=== PATIENT | male | born 1960 | race Caucasian/White ===

== ENCOUNTER → 2017-04-13 11:16 | Outpatient (POV) | payer MEDICARE, MEDICAID, SELFPAY ==
[2017-04-13 12:07] VITALS: BP 190/114; PULSE 87; RESP 18; O2SAT 94
--- NOTE | 2017-04-13 12:30 | HMH.PMCON ---
Assessment and Plan (1) Cervical post-laminectomy syndrome Current visit: Yes Status: Acute Category: Medical Code(s): M96.1 - Postlaminectomy syndrome, not elsewhere classified (2) Degenerative joint disease of cervical spine Current visit: Yes Status: Acute Qualifiers: Spinal osteoarthritis complication: with radiculopathy Qualified Code(s): M47.22 - Other spondylosis with radiculopathy, cervical region Category: Medical Code(s): M47.812 - Spondylosis without myelopathy or radiculopathy, cervical region (3) Cervical radiculopathy due to degenerative joint disease of spine Current visit: Yes Status: Acute Category: Medical Code(s): M47.22 - Other spondylosis with radiculopathy, cervical region (4) Degenerative joint disease of cervical and lumbar spine Current visit: Yes Status: Acute Category: Medical Code(s): M47.812 - Spondylosis without myelopathy or radiculopathy, cervical region; M47.816 - Spondylosis without myelopathy or radiculopathy, lumbar region (5) Degenerative joint disease (DJD) of lumbar spine Current visit: Yes Status: Acute Qualifiers: Spinal osteoarthritis complication: with radiculopathy Qualified Code(s): M47.26 - Other spondylosis with radiculopathy, lumbar region Category: Medical Code(s): M47.816 - Spondylosis without myelopathy or radiculopathy, lumbar region (6) Lumbosacral radiculopathy due to degenerative joint disease of spine Current visit: Yes Status: Acute Category: Medical Code(s): M47.27 - Other spondylosis with radiculopathy, lumbosacral region - Assessment and plan all Dx Assessment and Plan for all problems:: We will start this patient on diclofenac 75 mg twice a day. This will be transmitted to his pharmacy. We will also schedule for cervical epidural steroid injection. The patient did walk out without receiving an appointment for his injection so it is assumed that he is not interested in any further therapy. Since he has been dismissed from 2 previous pain clinics we will not prescribe him any narcotics. HPI - Data of Consult Patient: new to practice Consult date: 04/13/17 Requesting Physician: Nico Rosa MD Primary Care Provider: Mynor Severino MD Family Provider: Referral Provider, MD - Consult Narrative Reason for consult: Neck pain, mid back pain and low back pain History of present illness: Mr. Simms is a 56 year old male who has a long history of neck pain, low back pain and mid back pain. MRI does show degenerative changes throughout the lumbar spine with bulging disc and facet hypertrophy throughout L3-L4, L4-L5 and L5-S1. MRI of the thoracic spine does show some degenerative changes with postsurgical changes of the cervical spine. He also does have significant degenerative disc disease throughout the cervical spine. Most of his pain today is in the neck radiating to both arms. He has been to to previous pain clinics. He did receive injections by Dr. ITZ Kilgore and recently he was seen at the pain treatment center on [facility]. He was dismissed from the pain treatment center for noncompliance with her narcotic agreement. He is requesting oxycodone. I have told him that we will not give him any oral narcotics and the only thing I can offer him is a anti-inflammatory and injections. We will start him on diclofenac 75 mg twice a day. This will be transmitted to his pharmacy. We will also schedule him for a cervical epidural steroid injection. CC: Nico Rosa MD [facility] History Medical History: Reports:: Myocardial Infarction Denies:: Cancer, Diabetes Mellitus Type 1, Diabetes Mellitus Type 2, MRSA Other Medical History: Reports: Arthritis Other Surgeries: No: Pacemaker Amputation: No Fractures: No - *Social History Smoking Status: Current every day smoker Tobacco Type: cigarettes # Packs/Day (cigarettes): 1 Alcohol Intake: never Substance Use Type: denies use Occupational Status: unemploy
--- NOTE | 2017-04-13 12:33 | P.CONS_ITS ---
Assessment and Plan (1) Cervical post-laminectomy syndrome Current visit: Yes Status: Acute Category: Medical Code(s): M96.1 - Postlaminectomy syndrome, not elsewhere classified (2) Degenerative joint disease of cervical spine Current visit: Yes Status: Acute Qualifiers: Spinal osteoarthritis complication: with radiculopathy Qualified Code(s): M47.22 - Other spondylosis with radiculopathy, cervical region Category: Medical Code(s): M47.812 - Spondylosis without myelopathy or radiculopathy, cervical region (3) Cervical radiculopathy due to degenerative joint disease of spine Current visit: Yes Status: Acute Category: Medical Code(s): M47.22 - Other spondylosis with radiculopathy, cervical region (4) Degenerative joint disease of cervical and lumbar spine Current visit: Yes Status: Acute Category: Medical Code(s): M47.812 - Spondylosis without myelopathy or radiculopathy, cervical region; M47.816 - Spondylosis without myelopathy or radiculopathy, lumbar region (5) Degenerative joint disease (DJD) of lumbar spine Current visit: Yes Status: Acute Qualifiers: Spinal osteoarthritis complication: with radiculopathy Qualified Code(s): M47.26 - Other spondylosis with radiculopathy, lumbar region Category: Medical Code(s): M47.816 - Spondylosis without myelopathy or radiculopathy, lumbar region (6) Lumbosacral radiculopathy due to degenerative joint disease of spine Current visit: Yes Status: Acute Category: Medical Code(s): M47.27 - Other spondylosis with radiculopathy, lumbosacral region - Assessment and plan all Dx Assessment and Plan for all problems:: We will start this patient on diclofenac 75 mg twice a day. This will be transmitted to his pharmacy. We will also schedule for cervical epidural steroid injection. The patient did walk out without receiving an appointment for his injection so it is assumed that he is not interested in any further therapy. Since he has been dismissed from 2 previous pain clinics we will not prescribe him any narcotics. HPI - Data of Consult Patient: new to practice Consult date: 04/13/17 Requesting Physician: Nico Rosa MD Primary Care Provider: Mynor Severino MD Family Provider: Referral Provider, MD - Consult Narrative Reason for consult: Neck pain, mid back pain and low back pain History of present illness: Mr. Simms is a 56 year old male who has a long history of neck pain, low back pain and mid back pain. MRI does show degenerative changes throughout the lumbar spine with bulging disc and facet hypertrophy throughout L3-L4, L4-L5 and L5-S1. MRI of the thoracic spine does show some degenerative changes with postsurgical changes of the cervical spine. He also does have significant degenerative disc disease throughout the cervical spine. Most of his pain today is in the neck radiating to both arms. He has been to to previous pain clinics. He did receive injections by Dr. ITZ Kilgore and recently he was seen at the pain treatment center on [facility]. He was dismissed from the pain treatment center for noncompliance with her narcotic agreement. He is requesting oxycodone. I have told him that we will not give him any oral narcotics and the only thing I can offer him is a anti-inflammatory and injections. We will start him on diclofenac 75 mg twice a day. This will be transmitted to his pharmacy. We will also schedule him for a cervical epidural steroid injection. CC: Nico Rosa MD [facility] History Medical History: Reports:: Myocardial Infarction Denies:: Cancer, Diabetes Mellitus Type 1, Diabetes
== END ==
PROVIDERS: PCP Emergency Medicine; Visit Provider Anesthesiology
DX: M47.22 Other spondylosis with radiculopathy, cervical region (principal); M47.26 Other spondylosis with radiculopathy, lumbar region; M47.812 Spondylosis without myelopathy or radiculopathy, cervical region; M96.1 Postlaminectomy syndrome, not elsewhere classified
CPT/HCPCS: 99202

== ENCOUNTER 2017-05-02 14:26 | Emergency (ER) | payer MEDICARE, MEDICAID, SELFPAY ==
--- NOTE | 2017-05-02 | CT_ITS ---
CT angio chest CTA chest/with CTA reconstructions . Ordering Physician: Art Arevalo MD Patient Age: 56 years: Male HISTORY: ITS.REASON: CHEST PAIN AND ELEVATED D DIMER Elevated d-dimer with chest pain upper normal wall thickness throughout entire esophagus. TECHNIQUE: Thin section Helical CT scanning through the chest following 70 cc Isovue-370 followed x 40 mL normal saline. From the acquired thin sections thickened axial images performed. Thereafter thickened MIPP volume images performed in the sagittal coronal plane on CT workstation COMPARISON :Chest film 01/29/2017 & 02/23/2016 & 05/02/2017 FINDINGS . No evidence of pulmonary embolism. There is good visualization of pulmonary arteries with no filling defects identified. It the aortic arch and great vessels arising from such appears satisfactory. Minimal atheromatous plaque throughout the descending aorta. It. No mediastinal adenopathy nor hilar adenopathy. Heart Normal size. No pericardial effusion Prominent hyperexpansion and COPD,. Emphysematous changes throughout. With Scattered bleb formation. Most evident towards apices. Minimal scarring towards apices. . Mild diffuse Thickening of the airways throughout, but most evident centrally. Suspect reflects chronic bronchitisin this presumed smoker. Major Central airway show no obstruction. However there is narrowing of branching airways bilateral.: For example fourth order bronchus leading towards RLL with additional additional wall thickening or mucoid material nearly obstructing this lumen..-This feature is best evaluated on the thin section axial image sets . ( Slice 213 on very thin axial thin section image set & also seen on thickened axial images slice 77.).. Similar thickened narrowed airways leading towards the lingula anteriorly on the left, seen on axial thin section 207.. Anterior fusion lower C-spine. T-spine intact noted. Survey ribs unremarkable.. T-spine intact Limited imaging into the Uppermost abdomen:. Note so stippled calcifications throughout the pancreas compatible with chronic pancreatitis. Cholecystectomy. Fluid-filled descending duodenum. What appears to be persistent stent duct common bile duct, and stent possible at pancreatic duct again noted. Mild dilatation of intrahepatic biliary ducts particularly at left lobe of liver. . IMPRESSION: 1. No evidence of pulmonary embolism.. Good quality study. Aorta satisfactory with only Minor thrombus plaque throughout the descending aorta. 2. Prominent COPD. & Emphysematous changes Again noted. Mild diffuse thickening of airways. . 3. Note Small fourth order airways which are nearly occluded and obstructed, most likely due to due to inflammatory wall thickening along with mucoid material. Doubt early lesion but cannot be totally exclude.. This is seen only at distal fourth order airways-for example bronchusleading to R LL; as well is fourth order bronchus leading to to the lingula on left. *Would encourage a follow-up CT screening chest 6 months for ongoing evaluation in this this patient with presumed significant smoking history 4. No acute pulmonary findings. No focal pneumonia.. 4. Included.Limited images upper abdomen--again note stippled calcification pancreas, likely reflecting chronic pancreatitis... Biliary and pancreatic stent I believe remain in place.
[2017-05-02 14:31] VITALS: BP 136/98; PULSE 80; RESP 20; O2SAT 97; BMI 20.1
--- NOTE | 2017-05-02 14:40 | XR_ITS ---
XR chest 2V Ordering Physician: Art Arevalo MD Patient Age: 56 years: Male HISTORY: ITS.REASON: chest pain TECHNIQUE: PA and lateral chest COMPARISON :01/29/2017 2 view chest. . Previous 01/29/2017 and 02/23/2016 CXR FINDINGS No focal pneumonia. Nothing definitely acute. Heart carlitos and mediastinal structures satisfactory. Previous anterior fusion C-spine noted. No pneumothorax no pleural effusion. The chest wall and T-spine appears stable and satisfactory.. There seems to be some variable coarsening and prominence of central markings I believe we see such again today which may reflect a bronchitis mild central airway inflammatory changes. Subsequent CT shows no focal pneumonia but there is airway thickening evident. Which supports this plain film impression IMPRESSION: ---- . No focal pneumonia. Mild central airway thickening at situation central markings. COPD,. (More impressive and evident on subsequent CT..)
--- NOTE | 2017-05-02 14:56 | HMH.EDCP ---
ED Disposition Clinical Impression: CAD (coronary artery disease), Atelectasis, COPD (chronic obstructive pulmonary disease), Tobacco use disorder, Atypical chest pain Disposition: Left Against Medical Advice Condition on Discharge: Good Additional Instructions: While waiting the patient became agitated and refused to wait on his second troponin . the patient was given copy of the CT scan report to follow-up with Dr. Severino. He will follow-up with Dr. Rivera. daily asa stop smoking added an albuterol MDI return if needed Prescriptions: Albuterol Sulfate [Albuterol HFA Inhaler] 1 puff IH Q4HP PRN #1 inh PRN Reason: Shortness Of Breath Or Wheezing Referrals: Mynor Severino MD [Primary Care Provider] - - Critical Care Critical Care Time: No Attestation: On 05/02/17, the high probability of a clinically significant, sudden or life threatening deterioration of the following system(s) required my full and direct attention, intervention and personal management. The time I documented below is in addition to time spent performing reported procedures but includes the following listed in this critical care notation. Medical Decision Making Vital Signs: 05/02/17 14:31 05/02/17 18:15 Pulse Rate [Right Brachial] 80 Respiratory Rate 20 Blood Pressure [Right Arm] 136/98 Blood Pressure Mean [Right Arm] 110 Blood Pressure Source [Right Arm] Automatic Cuff Blood Pressure Position [Right Arm] Supine 02 Sat by Pulse Oximetry 97 Oxygen Delivery Method Room Air Room Air - Lab Data Lab Results 05/02/17 14:40: WBC 13.9 H, RBC 5.29, Hgb 16.0, Hct 48.1, MCV 90.9, MCH 30.3, MCHC 33.3, RDW 13.6, Plt Count 279, MPV 7.2 L, Neut % (Auto) 77.3, Lymph % (Auto) 13.8, Child[place] % (Auto) 6.9, Eos % (Auto) 1.5, Baso % (Auto) 0.5, Neut # (Auto) 10.8 H, Lymph # (Auto) 1.9, Child[place] # (Auto) 1.0, Eos # (Auto) 0.2, Baso # (Auto) 0.1 05/02/17 14:40: D-Dimer 613 H* 05/02/17 14:40: Sodium 136, Potassium 3.5, Chloride 100, Carbon Dioxide 27, Anion Gap 12.5, BUN 11, Creatinine 1.01, Estimated Creat Clear 65, Estimated GFR 76, Est GFR ( Amer) 92, Glucose 156 H, Calcium 8.9, Total Bilirubin 0.6, AST 62 H, ALT 89 H, Alkaline Phosphatase 206 H, Total Creatine Kinase 129, CK-MB (CK-2) 0.5, CK-MB (CK-2) Rel Index 0.4, Troponin I < 0.02, Total Protein 8.1, Albumin 3.6, Globulin 4.5 H, Albumin/Globulin Ratio 0.8 L 05/02/17 14:40: B-Natriuretic Peptide 41 05/02/17 14:40: Lipase 632 H 05/02/17 14:40: Magnesium 1.8 05/02/17 17:25: Troponin I < 0.02 Result diagrams: 05/02/17 14:40 05/02/17 14:40 Orders (Tests/Meds): ED MEDICATIONS Discontinued Medications Generic Name Dose Route Start Last Admin Trade Name Freq PRN Reason Stop Dose Admin Acetaminophen 650 mg 05/02/17 18:00 05/02/17 18:02 Acetaminophen 325mg Tab PO 05/02/17 18:01 Not Given ONCE ONE Albuterol/Ipratropium 3 ml 05/02/17 18:03 Duoneb 3ml Neb IH 05/02/17 18:04 ONCE ONE - ECG Data Tracing #1 Normal sinus rhythm 74/min, atrial enlargement all T waves, to exclude hyperkalemia. ECG initial impression date: 05/02/17 - Shawn Inquiry Pt receiving controlled substance: No Shawn was queried for this patient: No Medical Decision Making Narrative: I discussed the underlying CT report with the patient and give him a copy to discuss with his primary care physician. Have a CT scan follow-up as recommended by the radiology. While waiting on his second troponin the patient became agitated and decided to leave AGAINST MEDICAL ADVICE MPRESSION: 1. No evidence of pulmonary embolism.. Good quality study. Aorta satisfactory with only Minor thrombus plaque throughout the descending aorta. 2. Prominent COPD. & Emphysematous changes Again noted. Mild diffuse thickening of airways. . 3. Note Small fourth order airways which are nearly occluded and obstructed, most likely due to due to inflammatory wall thic
--- NOTE | 2017-05-02 14:59 | ED_ITS ---
ED Disposition Clinical Impression: CAD (coronary artery disease), Atelectasis, COPD (chronic obstructive pulmonary disease), Tobacco use disorder, Atypical chest pain Disposition: Left Against Medical Advice Condition on Discharge: Good Additional Instructions: While waiting the patient became agitated and refused to wait on his second troponin . the patient was given copy of the CT scan report to follow-up with Dr. Severino. He will follow-up with Dr. Rivera. daily asa stop smoking added an albuterol MDI return if needed Prescriptions: Albuterol Sulfate [Albuterol HFA Inhaler] 1 puff IH Q4HP PRN #1 inh PRN Reason: Shortness Of Breath Or Wheezing Referrals: Mynor Severino MD [Primary Care Provider] - - Critical Care Critical Care Time: No Attestation: On 05/02/17, the high probability of a clinically significant, sudden or life threatening deterioration of the following system(s) required my full and direct attention, intervention and personal management. The time I documented below is in addition to time spent performing reported procedures but includes the following listed in this critical care notation. Medical Decision Making Vital Signs: 05/02/17 14:31 05/02/17 18:15 Pulse Rate [Right Brachial] 80 Respiratory Rate 20 Blood Pressure [Right Arm] 136/98 Blood Pressure Mean [Right Arm] 110 Blood Pressure Source [Right Arm] Automatic Cuff Blood Pressure Position [Right Arm] Supine 02 Sat by Pulse Oximetry 97 Oxygen Delivery Method Room Air Room Air - Lab Data Lab Results 05/02/17 14:40: WBC 13.9 H, RBC 5.29, Hgb 16.0, Hct 48.1, MCV 90.9, MCH 30.3, MCHC 33.3, RDW 13.6, Plt Count 279, MPV 7.2 L, Neut % (Auto) 77.3, Lymph % (Auto ) 13.8, Slope % (Auto) 6.9, Eos % (Auto) 1.5, Baso % (Auto) 0.5, Neut # (Auto) 10.8 H, Lymph # (Auto) 1.9, Slope # (Auto) 1.0, Eos # (Auto) 0.2, Baso # (Auto) 0.1 05/02/17 14:40: D-Dimer 613 H* 05/02/17 14:40: Sodium 136, Potassium 3.5, Chloride 100, Carbon Dioxide 27, Anion Gap 12.5, BUN 11, Creatinine 1.01, Estimated Creat Clear 65, Estimated GFR 76, Est GFR ( Amer) 92, Glucose 156 H, Calcium 8.9, Total Bilirubin 0.6, AST 62 H, ALT 89 H, Alkaline Phosphatase 206 H, Total Creatine Kinase 129, CK-MB (CK-2) 0.5, CK-MB (CK-2) Rel Index 0.4, Troponin I < 0.02, Total Protein 8.1, Albumin 3.6, Globulin 4.5 H, Albumin/Globulin Ratio 0.8 L 05/02/17 14:40: B-Natriuretic Peptide 41 05/02/17 14:40: Lipase 632 H 05/02/17 14:40: Magnesium 1.8 05/02/17 17:25: Troponin I < 0.02 Result diagrams: 05/02/17 14:40 05/02/17 14:40 Orders (Tests/Meds): ED MEDICATIONS Discontinued Medications Generic Name Dose Route Start Last Admin Trade Name Freq PRN Reason Stop Dose Admin Acetaminophen 650 mg 05/02/17 18:00 05/02/17 18:02 Acetaminophen 325mg Tab PO 05/02/17 18:01 Not Given ONCE ONE Albuterol/Ipratropium 3 ml 05/02/17 18:03 Duoneb 3ml Neb IH 05/02/17 18:04 ONCE ONE - ECG Data Tracing #1 Normal sinus rhythm 74/min, atrial enlargement all T waves, to exclude hyperkalemia. ECG initial impression date: 05/02/17 - Shawn Inquiry Pt receiving controlled substance: No Shawn was queried for this patient: No Medical Decision Making Narrative: I discussed the underlying CT report with the patient and give him a copy to
[2017-05-02 15:11] LABS: Basophils # 0.1 K/mm3 (0-0.2); Basophils % 0.5 % (0.1-2.0); Eosinophils # 0.2 K/mm3 (0.0-0.4); Eosinophils % 1.5 % (0.1-12.0); Hematocrit 48.1 % (42.0-52.0); Lymphocytes # 1.9 K/mm3 (0.7-4.5); Lymphocytes % 13.8 K/mm3 (10-50); Mean Corpuscular HGB Conc 33.3 g/dL (31.8-35.4); Mean Corpuscular Hemoglobin 30.3 pg (27.0-31.2); Mean Corpuscular Volume 90.9 fl (80-94); Mean Platelet Volume 7.2 fl (7.4-10.4); Monocytes % 6.9 % (1.7-9.3); Neutrophils # 10.8 K/mm3 (1.8-7.8); Neutrophils % 77.3 % (37.0-80.0); Platelet Count 279 K/mm3 (142-424); Red Blood Count 5.29 M/mm3 (4.60-6.20); Red Cell Distribution Width 13.6 % (11.5-17.5); White Blood Count 13.9 K/mm3 (4.8-10.8)
[2017-05-02 15:18] LABS: Magnesium 1.8 mg/dL (1.4-2.2)
[2017-05-02 15:19] LABS: Lipase 632 u/L (73-393)
[2017-05-02 15:29] LABS: Alanine Aminotransferase 89 U/L (12-78); Albumin Level 3.6 gm/dL (3.4-5.0); Albumin/Globulin Ratio 0.8 (1.1-1.8); Alkaline Phosphatase 206 U/L (46-116); Anion Gap 12.5 mEq/L (5-15); Aspartate Amino Transferase 62 U/L (15-37); Bilirubin,Total 0.6 mg/dL (0.2-1.0); Blood Urea Nitrogen 11 mg/dL (7-18); CKMB Relative Index 0.4 U/L (0-4.0); Calcium 8.9 mg/dL (8.5-10.1); Carbon Dioxide 27 mmol/L (21.0-32.0); Chloride 100 mmol/L (98-107); Creatine Kinase 129 U/L (39-308); Creatine Kinase MB 0.5 mg/ml (0.0-3.6); Creatinine Clearance Estimated 65 mL/min (0-300); Creatinine,Serum 1.01 mg/dL (0.70-1.30); Estimated Glomerular Filt Rate 76 ml/min (>60); GFR (African American) 92 ML/MIN (>60); Globulin 4.5 gm/dl (1.3-3.2); Glucose 156 mg/dL (74-106); Potassium 3.5 mmoL/L (3.5-5.1); Sodium 136 mmol/L (136-145); Total Protein,Serum 8.1 gm/dL (6.4-8.2); Troponin I < 0.02 ng/ml (0.00-0.06)
[2017-05-02 15:34] LABS: D-Dimer 613 (0-400)
--- NOTE | 2017-05-02 18:04 | PC.NURSE ---
patient stated he was having pain and md ordered tylenol when going to give patient tylenol he stated if thats all they can do i don't even want it . patient didn't take it at this time.
[2017-05-02 18:12] LABS: Troponin I < 0.02 ng/ml (0.00-0.06)
--- NOTE | 2017-05-02 18:27 | PC.NURSE ---
WENT IN ROOM PT SAID HE WASNT WAITING ON HIS LABS HE WAS READY TO LEAVE , PT SIGNED HIS AMA PAPERS
== END 2017-05-02 16:15 | disposition left against medical advice (07) ==
PROVIDERS: Emergency Provider Emergency Medicine; PCP Emergency Medicine
DX: I25.10 Atherosclerotic heart disease of native coronary artery without angina pectoris (principal); F17.210 Nicotine dependence, cigarettes, uncomplicated; J44.9 Chronic obstructive pulmonary disease, unspecified; J98.11 Atelectasis; R07.89 Other chest pain; Z95.5 Presence of coronary angioplasty implant and graft; Z53.21 Procedure and treatment not carried out due to patient leaving prior to being seen by health care provider
CPT/HCPCS: 36415; 71046; 71275; 80053; 82550; 82553; 83690; 83735; 83880; 84484; 85025; 85378; 93005; 99283

== ENCOUNTER → 2018-07-20 17:02 | Outpatient (CLI) | payer MEDICARE, MEDICAID, SELFPAY ==
[2018-07-20 18:26] LABS: Basophils # 0.1 K/mm3 (0-0.2); Basophils % 0.6 % (0.1-2.0); Eosinophils # 0.3 K/mm3 (0.0-0.4); Eosinophils % 2.8 % (0.1-12.0); Hemoglobin 14.1 g/dL (14.1-18.0); Lymphocytes # 2.5 K/mm3 (0.7-4.5); Lymphocytes % 26.6 % (10-50); Mean Corpuscular HGB Conc 33.6 g/dL (31.8-35.4); Mean Corpuscular Hemoglobin 30.9 pg (27.0-31.2); Mean Platelet Volume 7.7 fl (7.4-10.4); Monocytes # 0.5 K/mm3 (0.1-1.0); Monocytes % 5.5 % (1.7-9.3); Neutrophils # 6.1 K/mm3 (1.8-7.8); Neutrophils % 64.4 % (37.0-80.0); Platelet Count 291 K/mm3 (142-424); Red Blood Count 4.56 M/mm3 (4.60-6.20); Red Cell Distribution Width 14.2 % (11.5-17.5); White Blood Count 9.5 K/mm3 (4.8-10.8)
[2018-07-20 18:46] LABS: Alanine Aminotransferase 20 U/L (12-78); Albumin Level 3.5 gm/dL (3.4-5.0); Albumin/Globulin Ratio 0.9 (1.1-1.8); Alkaline Phosphatase 85 U/L (46-116); Anion Gap 14.4 mEq/L (5-15); Aspartate Amino Transferase 15 U/L (15-37); Bilirubin,Total 0.3 mg/dL (0.2-1.0); Blood Urea Nitrogen 11 mg/dL (7-18); Calcium 8.6 mg/dL (8.5-10.1); Carbon Dioxide 27 mmol/L (21.0-32.0); Chloride 103 mmol/L (98-107); Creatinine,Serum 1.22 mg/dL (0.70-1.30); Estimated Glomerular Filt Rate 61 ml/min (>60); Free T4 (Free Thyroxine) 1.14 ng/dl (0.76-1.46); GFR (African American) 74 ML/MIN (>60); Globulin 3.8 gm/dl (1.3-3.2); Glucose 187 mg/dL (74-106); Potassium 3.4 mmoL/L (3.5-5.1); Sodium 141 mmol/L (136-145); Thyroid Stimulating Hormone 0.41 uIU/ml (0.358-3.740); Total Protein,Serum 7.3 gm/dL (6.4-8.2)
[2018-07-20 19:07] LABS: Erythrocyte Sedimentation Rate 13 mm/hr (0-20)
[2018-07-22 16:19] LABS: Hemoglobin A1C 6.6 % (0.0-7.0)
[2018-07-22 18:32] LABS: Vitamin D 25 Hydroxy 17.2 ng/mL (30.0-100.0)
== END ==
PROVIDERS: Visit Provider Emergency Medicine
DX: I25.10 Atherosclerotic heart disease of native coronary artery without angina pectoris (principal); I10 Essential (primary) hypertension; R73.9 Hyperglycemia, unspecified
CPT/HCPCS: 80053; 82652; 83036; 84439; 84443; 85025; 85651

== ENCOUNTER → 2018-08-02 12:40 | Outpatient (CLI) | payer MEDICARE, MEDICAID, SELFPAY ==
--- NOTE | 2018-08-02 12:42 | MR_ITS ---
MR cervical spine wo con, MR 3-d myelogram/MRCP HISTORY: PT states neck pain, mid and low back pain X years. Bilateral arm pain, LT arm worse. Bilateral hand and fingers numbness and tingling. Prior neck surgery. ITS.REASON: neck pain ORDERING PHYSICIAN: Mynor Severino MD PATIENT AGE: 58 years Comparison: MRI 03/15/15. TECHNIQUE: Standard multiplanar multiecho sequences are performed without contrast. 3-D MIP and myelographic images are also rendered and reviewed FINDINGS: There has been prior anterior cervical disc fusion at C5-C6 and C7 with moderate degree of artifact. The craniocervical junction has an unremarkable appearance. There is however noted to be diffuse increased T2 signal within the donna. This may be better evaluated with MRI of the brain without and with contrast. C2-C3: Unremarkable. C3-C4: Moderate left-sided foraminal narrowing from uncovertebral hypertrophy C4-C5: Degenerative disc disease. Significant artifact from the anterior bone plate and screws at C5. There is focal increased T2 signal involving the C4-C5 disc space centrally not significant change. There is narrowing of the canal at this level at 10 mm without cord impingement. Mild prominence of the posterior longitudinal ligament as before C5-C6: Significant artifact from the anterior bone plate with narrowing of the canal at 10 mm without cord impingement C6-C7 postsurgical changes with artifact with narrowing of the canal 10 mm without impingement. Posterior hypertrophic change eccentric to the left versus artifact as before C7-T1: Unremarkable. IMPRESSION: 1. Postsurgical changes with significant artifact. 2. Cervical spondylosis as described above. Please see above for detailed description at each level. 3. Increased T2 signal in the donna. 4. Overall no significant change from the previous exam.
== END ==
PROVIDERS: PCP Emergency Medicine; Visit Provider Emergency Medicine
DX: M54.2 Cervicalgia (principal)
CPT/HCPCS: 72141; 76376

== ENCOUNTER 2018-11-08 16:57 | Observation (INO) ==
[2018-11-08 17:15] LABS: Basophils # 0.1 K/mm3 (0-0.2); Basophils % 0.7 % (0.1-2.0); Eosinophils # 0.1 K/mm3 (0.0-0.4); Eosinophils % 0.7 % (0.1-12.0); Hematocrit 48.6 % (42.0-52.0); Hemoglobin 15.9 g/dL (14.1-18.0); Lymphocytes # 2.5 K/mm3 (0.7-4.5); Mean Corpuscular HGB Conc 32.7 g/dL (31.8-35.4); Mean Platelet Volume 6.6 fl (7.4-10.4); Monocytes # 0.8 K/mm3 (0.1-1.0); Monocytes % 5.8 % (1.7-9.3); Neutrophils % 75.9 % (37.0-80.0); Platelet Count 332 K/mm3 (142-424); Red Blood Count 5.23 M/mm3 (4.60-6.20); Red Cell Distribution Width 13.7 % (11.5-17.5); White Blood Count 14.4 K/mm3 (4.8-10.8)
[2018-11-08 17:30] LABS: Anion Gap 13.4 mEq/L (5-15); Blood Urea Nitrogen 21 mg/dL (7-18); Calcium 9.2 mg/dL (8.5-10.1); Carbon Dioxide 28 mmol/L (21.0-32.0); Chloride 99 mmol/L (98-107); Glucose 122 mg/dL (74-106); Sodium 136 mmol/L (136-145)
--- NOTE | 2018-11-08 19:03 | Emergency Department Note ---
ED Disposition Clinical Impression: Precordial chest pain Disposition: Admitted as Observation Condition on Discharge: Fair Referrals: Mynor Severino MD [Primary Care Provider] - - Critical Care Critical Care Time: No Attestation: On 11/08/18, the high probability of a clinically significant, sudden or life threatening deterioration of the following system(s) required my full and direct attention, intervention and personal management. The time I documented below is in addition to time spent performing reported procedures but includes the following listed in this critical care notation. Medical Decision Making - Medical Records Medical records reviewed: Yes: I reviewed the patient's medical records. - Shawn Inquiry Pt receiving controlled substance: No Vital Signs: 11/08/18 16:57 11/08/18 17:25 11/08/18 17:30 Temperature 98 F Temperature Source Oral Pulse Rate [Right Apical] 85 72 75 Respiratory Rate 18 20 Blood Pressure [Right Arm] 154/118 H 135/79 135/79 Blood Pressure Mean [Right Arm] 130 97 97 Blood Pressure Source [Right Arm] Automatic Cuff Blood Pressure Position [Right Arm] Sitting 02 Sat by Pulse Oximetry 98 98 97 Oxygen Delivery Method Room Air Room Air Room Air - Lab Data Lab Results 11/08/18 17:00: WBC 14.4 H, RBC 5.23, Hgb 15.9, Hct 48.6, MCV 93.0, MCH 30.4, MCHC 32.7, RDW 13.7, Plt Count 332, MPV 6.6 L, Neut % (Auto) 75.9, Lymph % (Auto) 17.0, [place] % (Auto) 5.8, Eos % (Auto) 0.7, Baso % (Auto) 0.7, Neut # (Auto) 11.0 H, Lymph # (Auto) 2.5, [place] # (Auto) 0.8, Eos # (Auto) 0.1, Baso # (Auto) 0.1 11/08/18 17:00: Sodium 136, Potassium 4.4, Chloride 99, Carbon Dioxide 28, Anion Gap 13.4, BUN 21 H, Creatinine 1.99 H, Estimated Creat Clear 32, Estimated GFR 35 L, Est GFR ( Amer) 42 L, Glucose 122 H, Calcium 9.2, Troponin I < 0.02 Result diagrams: 11/08/18 17:00 11/08/18 17:00 Orders (Tests/Meds): ED MEDICATIONS Discontinued Medications Generic Name Dose Route Start Last Admin Trade Name Colten PRN Reason Stop Dose Admin Aspirin 324 mg 11/08/18 17:01 11/08/18 17:06 Aspirin 81mg Chewable Tablet PO 11/08/18 17:02 324 mg ONCE ONE Administration ORDERS Category Date Time Status Troponin I Q3H Lab 11/08/18 20:15 Ordered Troponin I Q3H Lab 11/08/18 23:15 Ordered ECG Request by /Nse Stat Y 11/08/18 17:01 Ordered - Radiology Data #1 Image(s): Chest Image Reviewed: Yes I have reviewed radiologist's interpretation Preliminary Findings: Normal/NAD - ECG Data Tracing #1 EKG interpreted by Ascencion Rosas MD: Rhythm: sinus Rate: 79 Kake: normal Ectopy: none Conduction: normal ST Segment Changes: none T Wave Changes: none Q Waves: none No evidence of acute ischemia or injury Prior electrocardiagrams reviewed. No change from prior tracings. - Physician Consults Physician Consulted: Nicole Time: 19:16 Reason -: Cardiology Eval/Care Comment/Response: Recommends admission. - CATHERINE Score for Non-Stemi Age of Patient: 50-59 years old Heart Rate: 70-89 bpm Systolic Blood Pressure: 140-159 mmHg Serum Creatinine: 1.60-1.99 mg/dl CHF [place] Class: I-No CHF Other Risk Factors: None Non-Stemi Risk Score: 87 Medical Decision Narrative: Prior Heart Cath: ANGIOGRAPHIC RESULTS: 1. The left main artery has a distal eccentric 20% stenosis 2. The left anterior descending artery has has proximal 10% stenoses mid vessel 10% stenoses 3. The circumflex artery is a codominant vessel. The mid circumflex artery has a 30-40% stenosis. The distal terminal obtuse marginal artery is small vessel vasculopathy with diffuse 90% stenoses however the vessel is less than 1 mm in diameter. The first obtuse marginal artery is a large vessel and has an ostial 50% stenosis followed by a mid vessel 30% stenosis 4. The right coronary artery is a codominant vessel and has stents in the proximal and mid segment which are widely patent with very mild in-stent restenosis. Distally there are 30 and 40% stenoses. 5. The PINO ventriculogram reveals preserved ejection fraction estimated at 55% The left ventricular end-diastolic pressure less than 10 mmHg HEMODYNAMICS: Right atrial pressure is 3 mm Hg. Pulmonary arterial pressure is 25/15 mm Hg. Pulmonary artery occlusion pressure is 12 mm Hg. SATURATIONS: RA is 89 %. PA is 89 %. IMPRESSION: 1. Coronary artery disease as described above 2. Preserved ejection fraction 3. Basically normal intracardial pulmonary filling pressures 4. No evidence of intracardiac shunt PLAN: 1. Medical management 2. Risk factor modification 3. Avoidance of tobacco products 4. LDL less than 55 <Electronically signed by Milan Rivera MD in OV> 02/24/17 0958 General Adult HPI - General Chief complaint: Chest Pain Stated complaint: chest pain Time Seen by Provider: 11/08/18 19:03 Mode of Arrival: Ambulatory Limitations: No Limitations Description of Symptoms (Recalled from ER Triage Doc. by RN): pt c/o episode of SOA and chest tightness. PT states he was able to get some fresh air and that made him feel better. Pt has a hx of heart attack with stent placement by Dr. Rivera. - History of Present Illness HPI narrative: Complains of chest pain. States he was working today at 2 PM, was already sweating. Started having chest pressure across his anterior chest some discomfort in both posterior upper arms and some drawing of his hands. Short of breath, nauseated. Increased sweatiness after the chest pain began. Says now he feels much better, very minimal sensation of slight tightness in his chest. States he has a history of a prior [place] with stent placement by Dr. Rivera several years ago at [facility]. Says that his symptoms today reminded him of his heart attack. Says that the last testing he had on his heart was 7 to 8 months ago. He says that he had a positive stress test which was performed for chest pain and he then had a test, which sounds like a heart cath, that showed that his stress test was a false positive. I reviewed records and found that his stress test and heart cath were actually in February 2017. Results attached below. He is a smoker. He denies having diabetes. He has hypertension. He does not recall any diagnosis of hyperlipidemia. - Related Data Home Medications Medication Instructions Recorded Confirmed lisinopril 20 mg tablet 20 mg PO DAILY 07/20/18 11/08/18 Buprenorphine HCl/Naloxone HCl 1 each SL BID 11/08/18 11/08/18 [Suboxone 8 mg-2 mg Sl Film] Meloxicam 15 mg PO DAILY 11/08/18 11/08/18 Allergies Allergy/AdvReac Type Severity Reaction Status Date / Time No Known Allergies Allergy Verified 08/10/18 14:22 [facility] History - Hepatitis A Screen Drug use history?: No High risk sexual behaviors?: No History of sexually transmitted infection?: No Currently employed?: No Childcare worker?: No Do you have indoor plumbing?: Yes Do you have electricity?: Yes Attestation statement:: This patient has been screened for Hepatitis A risk factors. I have reviewed the patient's past medical history: Yes Medical History: Reports:: Lung Disease, Myocardial Infarction Denies:: Cancer, Diabetes Mellitus Type 1, Diabetes Mellitus Type 2, Internal Pacemaker, MRSA Other Medical History: Reports: Arthritis Other Surgeries: No: Pacemaker Amputation: No Fractures: No - Social History Smoking Status: Current every day smoker Tobacco Type: cigarettes # Packs/Day (cigarettes): 1 Alcohol Intake: never Substance Use Type: former substance user, painkillers Occupational Status: disabled Family Hx:: Cancer, Hypertension ROS Obtained: Yes All systems reviewed & no additional complaints - Constitutional Constitutional: Denies fever(s) - Cardiovascular Cardiovascular: Reports chest pain, Reports diaphoresis, Reports radiating jaw, neck or arm pain - Respiratory Respiratory: Yes dyspnea - Gastrointestinal Gastrointestingal: Reports: nausea. Denies: abdominal pain, vomiting Physical Exam - General General appearance: alert, in no apparent distress - Head Head exam: atraumatic, normocephalic - Eye Eye exam: Present: normal appearance, EOMI - ENT ENT exam: Present: normal exam, mucous membranes moist - Neck Neck exam: Present: normal inspection, trachea midline - Chest Chest inspection: Present: normal inspection, symmetric chest wall rise - Respiratory Respiratory exam: Present: normal lung sounds bilaterally. Absent: respiratory distress - Cardiovascular Cardiovascular exam: Present: regular rate, normal rhythm, normal heart sounds - Abdominal Exam Abdominal exam: Present: soft, normal bowel sounds. Absent: distention, tenderness - Extremities Exam Extremities exam: Present: normal inspection, full ROM. Absent: pedal edema, calf tenderness - Neurological Exam Neurological exam: Present: alert, oriented X3 - Psychiatric Psychiatric exam: Present: normal affect, normal mood - Skin Skin exam: Present: warm, dry
--- NOTE | 2018-11-08 20:39 | History & Physical Report ---
*Admission Date: 11/08/18 *Chief complaint: chest pain *History of present illness: this wm presented to ed with chest pain with hx of card dis - c/o episode of SOA and chest tightness. PT states he was able to get some fresh air and that made him feel better. Pt has a hx of heart attack with stent placement by Dr. Rivera Complains of chest pain. States he was working today at 2 PM, was already sweating. Started having chest pressure across his anterior chest some discomfort in both posterior upper arms and some drawing of his hands. Short of breath, nauseated. Increased sweatiness after the chest pain began. Says now he feels much better, very minimal sensation of slight tightness in his chest. States he has a history of a prior CT with stent placement by Dr. Rivera several years ago at [facility]. Says that his symptoms today reminded him of his heart attack. Says that the last testing he had on his heart was 7 to 8 months ago. He says that he had a positive stress test which was performed for chest pain and he then had a test, which sounds like a heart cath, that showed that his stress test was a false positive. I reviewed records and found that his stress test and heart cath were actually in February 2017. Results attached below. He is a smoker. He denies having diabetes. He has hypertension. He does not recall any diagnosis of hyperlipidemia. pt was admitted for card eval [facility] History I have reviewed the patient's past medical history: Yes Medical History: Reports:: Lung Disease, Myocardial Infarction Denies:: Cancer, Diabetes Mellitus Type 1, Diabetes Mellitus Type 2, Internal Pacemaker, MRSA *Have you ever received a pneumonia vaccine?: No *Have you received a flu vaccine this season?: Yes Other Medical History: Reports: Arthritis Other Surgeries: No: Pacemaker Amputation: No Fractures: No - *Social History Smoking Status: Current every day smoker Tobacco Type: cigarettes # Packs/Day (cigarettes): 1 Alcohol Intake: never Substance Use Type: former substance user, painkillers *Occupational Status:: disabled *Travel in the last 8 weeks: None Family Hx:: Cancer, Hypertension Review of Systems - Review of Systems Review of systems:: pertinent systems reviewed and negative unless documented below - Constitutional Denies headache(s) - Eyes Denies change in vision - ENT Denies change in voice - *Cardiovascular Reports chest pain at rest - *Respiratory Denies chest congestion - *Gastrointestinal Denies abdominal pain - *Genitourinary Denies blood in urine - *Musculoskeletal Denies joint pain - Integumentary/Breasts Denies rash - *Neurologic Denies seizure-like activity - Psychiatric Denies anxiety Meds Home Medications Medication Instructions Recorded Confirmed Type lisinopril 20 mg tablet 20 mg PO DAILY 07/20/18 11/09/18 History Buprenorphine HCl/Naloxone HCl 2 each SL DAILY 11/08/18 11/09/18 History [Suboxone 8 mg-2 mg Sl Film] Meloxicam 15 mg PO DAILY 11/08/18 11/09/18 History Allergies Allergy/AdvReac Type Severity Reaction Status Date / Time No Known Allergies Allergy Verified 08/10/18 14:22 Exam Vital signs and Labs for Last 24 Hours: Temp Pulse Resp BP Pulse Ox 98.0 F 80 18 142/86 H 98 11/08/18 20:30 11/08/18 20:30 11/08/18 20:30 11/08/18 20:30 11/08/18 19:20 Laboratory Results - last 24 hr 11/08/18 17:00: WBC 14.4 H, RBC 5.23, Hgb 15.9, Hct 48.6, MCV 93.0, MCH 30.4, MCHC 32.7, RDW 13.7, Plt Count 332, MPV 6.6 L, Neut % (Auto) 75.9, Lymph % (Auto) 17.0, [place] % (Auto) 5.8, Eos % (Auto) 0.7, Baso % (Auto) 0.7, Neut # (Auto) 11.0 H, Lymph # (Auto) 2.5, [place] # (Auto) 0.8, Eos # (Auto) 0.1, Baso # (Auto) 0.1 11/08/18 17:00: Sodium 136, Potassium 4.4, Chloride 99, Carbon Dioxide 28, Anion Gap 13.4, BUN 21 H, Creatinine 1.99 H, Estimated Creat Clear 32, Estimated GFR 35 L, Est GFR ( Amer) 42 L, Glucose 122 H, Calcium 9.2, Troponin I < 0.02 I & O for Last 24 hours: Intake & Output 11/06/18 11/07/18 11/08/1819 11:59 11:59 11:59 11:59 Weight 125 lb - Constitutional no acute distress, thin - *Routine HEENT Exam Head: Present: normocephalic Eye: Present: EOMI, PERRL ENT: Present: mucous membranes dry - *Routine Neck Exam Present: supple - *Routine Respiratory Exam Present: CTA bilaterally - *Routine Cardiovascular Exam Present: RRR, murmur - *Routine Abdominal Exam Present: soft - *Routine Extremities Exam Absent: full ROM - *Routine Skin Exam Present: intact - *Routine Neurological Exam Present: alert, oriented X3, CN II-XII intact - Routine Psychiatric Exam Present: normal affect Assessment and Plan (1) Precordial chest pain Current visit: Yes Status: Acute Category: Medical Code(s): R07.2 - Precordial pain (2) CAD (coronary artery disease) Current visit: No Status: Acute Qualifiers: Coronary Disease-Associated Artery/Lesion type: unspecified vessel or lesion type [place] vs. transplanted heart: [place] heart Associated angina: with unspecified angina Qualified Code(s): I25.119 - Atherosclerotic heart disease of [place] coronary artery with unspecified angina pectoris Category: Medical Code(s): I25.10 - Atherosclerotic heart disease of [place] coronary artery without angina pectoris (3) COPD (chronic obstructive pulmonary disease) Current visit: No Status: Acute Qualifiers: COPD type: unspecified COPD Qualified Code(s): J44.9 - Chronic obstructive pulmonary disease, unspecified Category: Medical Code(s): J44.9 - Chronic obstructive pulmonary disease, unspecified
--- NOTE | 2018-11-09 07:35 | Pharmacy Consult Notes ---
[facility] Pharmacy VTE Monitoring - Patient Demographics Admission date: 11/09/18 Report Date: 11/09/18 Time: 07:34 Allergies/Adverse Reactions: Patient Allergies No Known Allergies Allergy (Verified 08/10/18 14:22) Height: 1.68 m Weight: 54.459 kg Patient Problems: Current Active Problems (Updated 11/08/18 @ 20:39 by Mynor Severino MD) Precordial chest pain (Acute) - VTE Risk Labs: VTE Related Lab Results Hgb 15.9 g/dL (14.1-18.0) 11/08/18 17:00 Hct 48.6 % (42.0-52.0) 11/08/18 17:00 Plt Count 332 K/mm3 (142-424) 11/08/18 17:00 BUN 21 mg/dL (7-18) H 11/08/18 17:00 Creatinine 1.99 mg/dL (0.70-1.30) H 11/08/18 17:00 Estimated Creat Clear 32 mL/min (50-200) 11/08/18 17:00 Was VTE Risk Assessment Performed: Yes VTE Score: 5 VTE Risk Level: Low Risk Clinical Trial Participant: No - Prophylaxis VTE Prophylaxis Ordered?: Yes Types of VTE Prophylaxis: TEDS Knee High
--- NOTE | 2018-11-09 09:24 | Consult Report ---
History of Present Illness Consult date: 11/09/18 Requesting physician: Mynor Severino Consult reason: chest pain Chief complaint: Chest pain Additional Medical History:: 1.Coronary artery disease 2. Hypertension 3. Former opiate drug user, on Suboxone 4. Tobacco user History of present illness: This is a 58-year-old gentleman with known coronary artery disease. He presented to the emergency department with complaints of chest pain. 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 He states that he always gets sweaty when he is out working. Around 2 PM yesterday he started to have sudden onset of chest pressure in the center of his chest that radiated across the anterior aspect of his chest. It also radiated up into both of his shoulders and had some drawling in his hands. His chest tightness was associated with shortness of breath and nausea. He had worsening sweatiness after he started having the chest tightness. He states that it got worse the more he exerted himself and did improve with rest. The patient does have a history of a myocardial infarction with stenting. He did have a repeat heart cath in February 2017 which showed mild to moderate nonocclusive coronary artery disease and severe disease to an obtuse marginal artery that was too small for intervention. The patient states that he had stress testing about 7 or 8 months ago which was positive. This was followed by a heart cath which revealed patent coronary artery disease per his report. I can find no record of this but the patient is adamant that he had this done 7 to 8 months ago. The patient has failed to follow-up regularly in cardiology clinic. He is adamant that he wants to go home today. He denies any chest pain this morning. He denies any shortness of breath or edema. He denies any fever, chills, nausea, vomiting, diarrhea, PND or orthopnea. He has ruled out for myocardial infarction. [facility] History I have reviewed the patient's past medical history: Yes Medical History: Reports:: Atherosclerotic Heart Disease, Lung Disease, Myocardial Infarction Denies:: Cancer, Diabetes Mellitus Type 1, Diabetes Mellitus Type 2, Internal Pacemaker, MRSA *Have you ever received a pneumonia vaccine?: No *Have you received a flu vaccine this season?: No Other Medical History: Reports: Arthritis Other Surgeries: Yes: Cardiac Catheterization, Other (neck surgery x2 rods and plate at c6 and c7). No: Pacemaker Amputation: No Fractures: No - *Social History Educational Level: Completed High School Smoking Status: Current every day smoker Tobacco Type: cigarettes # Packs/Day (cigarettes): 1 Alcohol Intake: never Substance Use Type: opiates, prescription drug *Occupational Status:: disabled Housing: apartment Household Members: other *Travel in the last 8 weeks: None - Psychiatric History Expresses thoughts of harming self/others: None Suicide Plan Description: No Plan Family Hx:: Cancer Meds Home Medications Medication Instructions Recorded Confirmed Type lisinopril 20 mg tablet 20 mg PO DAILY 07/20/18 11/09/18 History Buprenorphine HCl/Naloxone HCl 2 each SL DAILY 11/08/18 11/09/18 History [Suboxone 8 mg-2 mg Sl Film] Meloxicam 15 mg PO DAILY 11/08/18 11/09/18 History Allergies Allergy/AdvReac Type Severity Reaction Status Date / Time No Known Allergies Allergy Verified 08/10/18 14:22 Review of Systems - Review of Systems Review of systems:: pertinent systems reviewed and negative unless documented below - *Cardiovascular Reports chest pain, Reports chest pain at rest, Reports chest pain with activity, Reports shortness of breath, Reports shortness of breath with activity, Reports radiating jaw, neck or arm pain - *Respiratory Reports shortness of breath, Reports shortness of breath with activity - *Musculoskeletal Reports body aches, Reports radiating pain into limb - *Neurologic Denies headache(s), Denies seizure-like activity Exam Vital signs and Labs for Last 24 Hours: Temp Pulse Resp BP Pulse Ox 97.8 F 65 19 127/75 100 11/09/18 08:00 11/09/18 08:00 11/09/18 08:00 11/09/18 08:00 11/09/18 08:00 Laboratory Results - last 24 hr 11/08/18 17:00: WBC 14.4 H, RBC 5.23, Hgb 15.9, Hct 48.6, MCV 93.0, MCH 30.4, MCHC 32.7, RDW 13.7, Plt Count 332, MPV 6.6 L, Neut % (Auto) 75.9, Lymph % (Auto) 17.0, Scott % (Auto) 5.8, Eos % (Auto) 0.7, Baso % (Auto) 0.7, Neut # (Auto) 11.0 H, Lymph # (Auto) 2.5, Scott # (Auto) 0.8, Eos # (Auto) 0.1, Baso # (Auto) 0.1 11/08/18 17:00: Sodium 136, Potassium 4.4, Chloride 99, Carbon Dioxide 28, Anion Gap 13.4, BUN 21 H, Creatinine 1.99 H, Estimated Creat Clear 32, Estimated GFR 35 L, Est GFR ( Amer) 42 L, Glucose 122 H, Calcium 9.2, Troponin I < 0.02 11/08/18 20:10: Troponin I < 0.02 11/08/18 23:18: Troponin I < 0.02 I & O for Last 24 hours: Intake & Output 11/06/18 11/07/18 11/08/18 11/09/18 23:59 23:59 23:59 23:59 Intake Total 10 / 10 240 / 240 Output Total 460 / 460 Balance -450 / -450 240 / 240 Weight 120 lb 1 oz 120 lb 1 oz Narrative: His EKG is sinus rhythm with left atrial enlargement and a rate of 79. His telemetry strip shows sinus rhythm. - Constitutional no acute distress, average body habitus - *Routine HEENT Exam Head: Present: normocephalic, atraumatic Eye: Present: EOMI, PERRL ENT: Present: mucous membranes moist - *Routine Neck Exam Present: supple, full ROM, normal carotid upstroke. Absent: JVD, carotid bruit, lymphadenopathy - *Routine Respiratory Exam Present: CTA bilaterally. Absent: rales, wheezes - *Routine Cardiovascular Exam Present: RRR, Normal S1, Normal S2. Absent: murmur - *Routine Abdominal Exam Present: soft, normoactive bowel sounds. Absent: tenderness, distended - *Routine Extremities Exam Present: full ROM, pulses intact, normal capillary refill. Absent: cyanosis, clubbing, edema - *Routine Skin Exam Present: intact, warm. Absent: erythema, rash - *Routine Neurological Exam Present: alert, oriented X3, CN II-XII intact. Absent: sensory deficit, motor deficit - Routine Psychiatric Exam Present: normal affect, normal thought process, anxious - Detailed Eye Exam Eyelids: Left normal inspection Assessment and Plan (1) Precordial chest pain Current visit: Yes Status: Acute Category: Medical Code(s): R07.2 - Precordial pain (2) CAD (coronary artery disease) Current visit: No Status: Acute Qualifiers: Coronary Disease-Associated Artery/Lesion type: unspecified vessel or lesion type [place] vs. transplanted heart: [place] heart Associated angina: with unspecified angina Qualified Code(s): I25.119 - Atherosclerotic heart disease of [place] coronary artery with unspecified angina pectoris Category: Medical Code(s): I25.10 - Atherosclerotic heart disease of [place] coronary artery without angina pectoris (3) COPD (chronic obstructive pulmonary disease) Current visit: No Status: Acute Qualifiers: COPD type: unspecified COPD Qualified Code(s): J44.9 - Chronic obstructive pulmonary disease, unspecified Category: Medical Code(s): J44.9 - Chronic obstructive pulmonary disease, unspecified (4) Tobacco use disorder Current visit: No Status: Chronic Category: Medical Code(s): F17.200 - Nicotine dependence, unspecified, uncomplicated (5) Hypertension Current visit: No Status: Chronic Qualifiers: Hypertension type: essential hypertension Qualified Code(s): I10 - Essential (primary) hypertension Category: Medical Code(s): I10 - Essential (primary) hypertension - Assessment and plan all Dx Assessment and Plan for all problems:: Plan: 1. The patient presented to the emergency department with chest pain. The patient states that this was similar to the same pain he had with his previous ME. He is having tightness in the chest. It is radiating to his bilateral shoulders and causing drying in the hands. Is associated with shortness of breath, nausea and worsening diaphoresis. The patient is having class II-III angina. I did recommend echocardiogram and Myoview stress testing. The patient declined at this time. He states that the last time he had a stress test it was positive and then had a heart cath that was negative for ischemia so this modality is not accurate for him. 2. The patient is on no antianginal medications. We will start him on aspirin 81 mg daily. We will start him on Ranexa 500 mg p.o. twice daily for angina and isosorbide mononitrate 30 mg daily. 3. The patient needs to be on a statin given his coronary artery disease. We will start him on Lipitor 20 mg p.o. nightly. 4. Coronary artery disease is present. 5. His blood pressure is well controlled. 6. His LDL goal is less than 55. 7. The patient does have COPD. Tobacco cessation is highly advised and counseled. 8. I have had a long discussion with the patient. We do believe that his angina is most likely cardiac in nature. He declines wanting an echocardiogram or Myoview stress testing at this time. I have discussed medical management w ith the patient as he is ruled out for an ME and starting antianginals as well as aspirin and a statin. The patient is agreeable in starting these medications to see if he has any improvement in his angina. 9. The patient is to follow-up in our outpatient cardiology clinic next week. If his symptoms have improved then we will continue with medical management. If the patient is still having angina symptoms then we will consider repeating his left cardiac catheterization at that time. The patient is agreeable with this plan. 10. The patient is a former opiate drug user. He is currently on Suboxone. He is very anxious when I am talking to him today. He states that he is ready to get home because he has been cooped up in this hospital. He is very adamant that he is not staying in the hospital any longer. 11. The patient is stable for discharge home today from a cardiac standpoint, but this will be left up to his primary care provider, as long as he is started on Ranexa, isosorbide, aspirin and Lipitor. He will follow-up in 1 week on an outpatient basis. Thank you for the opportunity to help participate in the care of this patient.
--- NOTE | 2018-11-09 09:31 | Discharge Summary ---
General - General Admission date:: 11/08/18 Discharge date: 11/09/18 HPI HPI: this wm presented to ed with chest pain with hx of card dis - c/o episode of SOA and chest tightness. PT states he was able to get some fresh air and that made him feel better. Pt has a hx of heart attack with stent placement by Dr. Rivera Complains of chest pain. States he was working today at 2 PM, was already sweating. Started having chest pressure across his anterior chest some discomfort in both posterior upper arms and some drawing of his hands. Short of breath, nauseated. Increased sweatiness after the chest pain began. Says now he feels much better, very minimal sensation of slight tightness in his chest. States he has a history of a prior MN with stent placement by Dr. Rivera several years ago at [facility]. Says that his symptoms today reminded him of his heart attack. Says that the last testing he had on his heart was 7 to 8 months ago. He says that he had a positive stress test which was performed for chest pain and he then had a test, which sounds like a heart cath, that showed that his stress test was a false positive. I reviewed records and found that his stress test and heart cath were actually in February 2017. Results attached below. He is a smoker. He denies having diabetes. He has hypertension. He does not recall any diagnosis of hyperlipidemia. pt was admitted for [facility] Course Hospital Course: pt reports feeling better today and has no chest pain and stable card enz - he declined echo - he was seen by card -oronary artery disease 2. Hypertension 3. Former opiate drug user, on Suboxone 4. Tobacco user History of present illness: This is a 58-year-old gentleman with known coronary artery disease. He presented to the emergency department with complaints of chest pain. 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 He states that he always gets sweaty when he is out working. Around 2 PM yesterday he started to have sudden onset of chest pressure in the center of his chest that radiated across the anterior aspect of his chest. It also radiated up into both of his shoulders and had some drawling in his hands. His chest tightness was associated with shortness of breath and nausea. He had worsening sweatiness after he started having the chest tightness. He states that it got worse the more he exerted himself and did improve with rest. The patient does have a history of a myocardial infarction with stenting. He did have a repeat heart cath in February 2017 which showed mild to moderate nonocclusive coronary artery disease and severe disease to an obtuse marginal artery that was too small for intervention. The patient states that he had stress testing about 7 or 8 months ago which was positive. This was followed by a heart cath which revealed patent coronary artery disease per his report. I can find no record of this but the patient is adamant that he had this done 7 to 8 months ago. The patient has failed to follow-up regularly in cardiology clinic. He is adamant that he wants to go home today. He denies any chest pain this morning. He denies any shortness of breath or edema. He denies any fever, chills, nausea, vomiting, diarrhea, PND or orthopnea. He has ruled out for myocardial infarction. he wishes to be d/c at this time - he has not agreed to any more eval Objective Vital signs: Temp Pulse Resp BP Pulse Ox 97.8 F 65 19 127/75 100 11/09/18 08:00 11/09/18 08:00 11/09/18 08:00 11/09/18 08:00 11/09/18 08:00 no acute distress - *Routine HEENT Exam Head: Present: normocephalic Eye: Present: EOMI, PERRL ENT: Present: mucous membranes dry - *Routine Neck Exam Present: supple - *Routine Respiratory Exam Present: CTA bilaterally - *Routine Cardiovascular Exam Present: RRR, murmur - *Routine Abdominal Exam Present: soft - *Routine Extremities Exam Present: full ROM - *Routine Skin Exam Present: intact - *Routine Neurological Exam Present: alert, oriented X3, CN II-XII intact - Routine Psychiatric Exam Present: normal affect Results Labs on day of discharge: Labs from last 24 hours 11/08/18 11/08/18 11/08/18 23:18 20:10 17:00 WBC RBC Hgb Hct MCV MCH MCHC RDW Plt Count MPV Neut % (Auto) Lymph % (Auto) [place] % (Auto) Eos % (Auto) Baso % (Auto) Neut # (Auto) Lymph # (Auto) [place] # (Auto) Eos # (Auto) Baso # (Auto) Sodium 136 Potassium 4.4 Chloride 99 Carbon Dioxide 28 Anion Gap 13.4 BUN 21 H Creatinine 1.99 H Estimated Creat Clear 32 Estimated GFR 35 L Est GFR ( Amer) 42 L Glucose 122 H Calcium 9.2 Troponin I < 0.02 < 0.02 < 0.02 11/08/18 17:00 WBC 14.4 H RBC 5.23 Hgb 15.9 Hct 48.6 MCV 93.0 MCH 30.4 MCHC 32.7 RDW 13.7 Plt Count 332 MPV 6.6 L Neut % (Auto) 75.9 Lymph % (Auto) 17.0 [place] % (Auto) 5.8 Eos % (Auto) 0.7 Baso % (Auto) 0.7 Neut # (Auto) 11.0 H Lymph # (Auto) 2.5 [place] # (Auto) 0.8 Eos # (Auto) 0.1 Baso # (Auto) 0.1 Sodium Potassium Chloride Carbon Dioxide Anion Gap BUN Creatinine Estimated Creat Clear Estimated GFR Est GFR ( Amer) Glucose Calcium Troponin I DS: Diagnosis - Discharge Diagnosis (1) Precordial chest pain Status: Acute (2) CAD (coronary artery disease) Status: Acute (3) COPD (chronic obstructive pulmonary disease) Status: Acute Discharge Plan - Patient Discharge Instructions ACTIVITY: Continue current activity DIET: continue same diet Patient Instructions: DI for Chest Pain - Follow up Plan Disposition: Home, Self-Retirement Medications: Home Medications Medication Instructions Recorded Confirmed Type lisinopril 20 mg tablet 20 mg PO DAILY 07/20/18 11/09/18 History Buprenorphine HCl/Naloxone HCl 2 each SL DAILY 11/08/18 11/09/18 History [Suboxone 8 mg-2 mg Sl Film] Meloxicam 15 mg PO DAILY 11/08/18 11/09/18 History Isosorbide Mononitrate [Imdur 30mg 30 mg PO DAILY #30 tab 11/09/18 Rx ER tablet] Ranolazine [Ranexa 500mg ER tablet] 500 mg PO BID #60 tab.er.12h 11/09/18 Rx Prescriptions/Medication Reconciliation: New Isosorbide Mononitrate [Imdur 30mg ER tablet] 30 mg PO DAILY #30 tab Ranolazine [Ranexa 500mg ER tablet] 500 mg PO BID #60 tab.er.12h Aspirin [Aspirin 81mg EC Tab] 81 mg PO DAILY tablet.dr Continued lisinopril 20 mg tablet 20 mg PO DAILY Buprenorphine HCl/Naloxone HCl [Suboxone 8 mg-2 mg Sl Film] 2 each SL DAILY Discontinued Meloxicam 15 mg PO DAILY
== END 2018-11-09 10:09 | disposition home or self-care (01) ==
LOC: ER 16:57 → 2ND 16:57
PROVIDERS: ADMIT Internal Medicine Adolescent Medicine; ATTEND Emergency Medicine
CPT/HCPCS: 36415; 71020; 71046; 80048; 84484; 85025; 93005; 93306; 99284; G0378

== ENCOUNTER → 2019-08-02 15:46 | Outpatient (CLI) | payer MEDICARE, MEDICAID, SELFPAY ==
[2019-08-02 16:15] LABS: Basophils # 0.1 K/mm3 (0-0.2); Basophils % 0.9 % (0.1-2.0); Eosinophils # 0.3 K/mm3 (0.0-0.4); Eosinophils % 2.9 % (0.1-12.0); Hematocrit 41.8 % (42.0-52.0); Hemoglobin 13.9 g/dL (14.1-18.0); Lymphocytes # 1.8 K/mm3 (0.7-4.5); Lymphocytes % 16.2 % (10-50); Mean Corpuscular HGB Conc 33.2 g/dL (31.8-35.4); Mean Corpuscular Hemoglobin 30.9 pg (27.0-31.2); Mean Platelet Volume 9.7 fl (7.4-10.4); Monocytes # 0.7 K/mm3 (0.1-1.0); Monocytes % 6.2 % (1.7-9.3); Neutrophils % 73.8 % (37.0-80.0); Platelet Count 264 K/mm3 (142-424); Red Blood Count 4.49 M/mm3 (4.60-6.20); Red Cell Distribution Width 13.3 % (11.5-17.5); White Blood Count 10.8 K/mm3 (4.8-10.8)
[2019-08-02 16:20] LABS: Chloride 102 mmol/L (98-107); Potassium 5.2 mmoL/L (3.5-5.1); Sodium 136 mmol/L (136-145)
[2019-08-02 16:22] LABS: Alanine Aminotransferase 27 U/L (12-78); Alkaline Phosphatase 96 U/L (38-126); Amylase 33 U/L (30-110); Anion Gap 12.2 mEq/L (5-15); Aspartate Amino Transferase 26 U/L (17-59); Bilirubin,Total 0.2 mg/dl (0.2-1.3); Blood Urea Nitrogen 18 mg/dl (9-20); Carbon Dioxide 27 mmol/L (22.0-30.0); Estimated Glomerular Filt Rate 86 ml/min (>60); GFR (African American) 105 ML/MIN (>60)
[2019-08-02 16:23] LABS: Albumin Level 4.1 g/dl (3.5-5.0); Albumin/Globulin Ratio 1.3 (1.1-1.8); Calcium 9.5 mg/dl (8.4-10.2); Chol/HDL Ratio 3.2 (1-3.5); Cholesterol 143 mg/dl (140-200); Globulin 3.2 g/dL (1.3-3.2); Glucose 155 mg/dl (74-100); HDL Cholesterol 45 mg/dl (40-60); Lipase 57 U/L (23-300); Total Protein,Serum 7.3 g/dl (6.3-8.2); Triglycerides 101 mg/dl (30-150); VLDL Cholesterol 20 mg/dL (0-40)
[2019-08-02 16:34] LABS: Direct LDL Cholesterol 100.86 mg/dL (100-129)
[2019-08-02 16:41] LABS: T4 (Thyroxine) 10.5 ug/dl (5.53-11.0)
[2019-08-02 16:52] LABS: Erythrocyte Sedimentation Rate 20 mm/hr (0-20)
[2019-08-02 16:54] LABS: Thyroid Stimulating Hormone 1.59 uIU/mL (0.465-4.68)
== END ==
PROVIDERS: Visit Provider Emergency Medicine
DX: K85.90 Acute pancreatitis without necrosis or infection, unspecified (principal); R53.83 Other fatigue; R10.9 Unspecified abdominal pain; R07.2 Precordial pain
CPT/HCPCS: 80053; 80061; 82150; 83690; 84436; 84443; 85025; 85651

== ENCOUNTER → 2019-08-04 08:26 | Outpatient (CLI) | payer MEDICARE, MEDICAID, SELFPAY ==
--- NOTE | 2019-08-04 08:26 | CT_ITS ---
PROCEDURE: CT ABDOMEN PELVIS W CON CLINICAL INDICATION: pain Periumbilical pain COMPARISON: CTAA CTA-ABD from 12/26/2015 ABDPELW/O CT ABD PELVIS W/O CONTRAST from 09/22/[address] angio chest from 05/02/2017 TECHNIQUE: IV Contrast: 75ML OPTIRAY 350 Oral Contrast none Axial images obtained with sagittal and coronal reformats. All CT scans at the facility use one or more dose reduction, viz: automated exposure control, ma/kV adjustment per patient size (including targeted exams where dose is matched to indication, i.e. head), or iterative reconstruction technique. FINDINGS: LOWER THORAX: No acute finding ABDOMEN & PELVIS: Prior cholecystectomy. There is moderate intrahepatic biliary ductal dilatation. There is a the soft tissue density within the distal aspect of the common bile duct measuring 16 mm not readily apparent on the most recent exam of 05/02/2017. MRCP suggested for further evaluation. There are findings of chronic pancreatitis with diffuse coarse calcifications involving the pancreas with pancreatic atrophy and ductal dilatation. A stent is present within the pancreatic duct. The spleen and adrenal glands are unremarkable. No acute finding of the kidneys. There are small bilateral renal cyst. There is mild aneurysmal dilatation of the infrarenal abdominal aorta measuring up to 3.1 cm AP and 3.3 cm transverse. There are mildly prominent small bowel loops present containing air-fluid levels. Gas and stool is noted within the large bowel. No definite transition point is apparent. No evidence of appendicitis. No evidence of diverticulitis. There is mild nonspecific thickening of the wall of the stomach in the fundal area and upper body of the stomach. No acute bony findings. Mild degenerative changes of the hips and spine.. IMPRESSION: 1. Prior cholecystectomy with moderate intra and extrahepatic biliary ductal dilatation. There is a 16 mm soft tissue density in the region of the common bile duct distally not readily apparent previously. Neoplasm, noncalcified stone or sludge ball is a consideration. Suggest MRCP for further evaluation. 2. Chronic pancreatitis with pancreatic stent in place. 3. Mildly distended small bowel loops with air-fluid levels. Partial obstruction or ileus is considered. 4. 3.3 cm infrarenal abdominal aortic aneurysm Dictated by: Tomi Gray MD 08/05/2019 08:22 Electronically signed by Tomi Gray MD in [place] 08/05/2019 08:22
== END ==
PROVIDERS: PCP Emergency Medicine; Visit Provider Emergency Medicine
DX: R10.9 Unspecified abdominal pain (principal)
CPT/HCPCS: 74177; Q9967

== ENCOUNTER → 2019-08-17 08:54 | Outpatient (CLI) | payer MEDICARE, MEDICAID, SELFPAY | PROVIDERS: PCP Emergency Medicine; Visit Provider Emergency Medicine | DX: R10.9 Unspecified abdominal pain (principal) ==

== ENCOUNTER → 2019-08-21 08:04 | Outpatient (CLI) | payer MEDICARE, MEDICAID, SELFPAY ==
--- NOTE | 2019-08-21 09:25 | MR_ITS ---
PROCEDURE: MR ABDOMEN WO/W CON CLINICAL INDICATION: ABDOMINAL PAIN, BILE DUCT DISEASE COMPARISON: CT CT ABDOMEN PELVIS W CON from 08/04/[address] ABDOMEN PELVIS W CON from 11/12/2019 Technique: Routine multiplanar multi echo sequences are performed without and with gadolinium enhancement. MRCP sequences were also performed FINDINGS: There is intra and extrahepatic biliary ductal dilatation. A 14 mm stone is present within the common bile duct proximally with dilated intra and extrahepatic biliary radicles. No enhancing lesions are evident. There is mild aneurysmal dilatation of the abdominal aorta better delineated on the CT scan measuring 3.2 cm in dimension. The kidneys and adrenal glands and spleen have an unremarkable appearance. Motion artifact obscures detailed evaluation of the pancreas. MRCP images are also degraded by motion artifact. The pancreatic duct is not well delineated on the MRCP images. Dynamic post enhanced images show no abnormal enhancing masses. The hypointense areas are present in the pancreatic head and may correspond to the coarse calcifications noted on the CT scan. IMPRESSION: 1. Limited exam secondary to motion artifact. 2. 14 mm common bile duct stone with intra and extrahepatic biliary ductal dilatation. 3. Pancreatic head calcifications. The pancreas and pancreatic duct is not well evaluated due to motion. ERCP may provide further evaluation. 4. Mild aneurysmal dilatation of the abdominal aorta. Dictated by: Tomi Gray MD 01/31/2020 13:06 Tomi Gray MD in [place] 01/31/2020 13:06
== END ==
PROVIDERS: PCP Emergency Medicine; Visit Provider Emergency Medicine
DX: R10.9 Unspecified abdominal pain (principal)
CPT/HCPCS: 74183; 76376; A9576

== ENCOUNTER 2019-11-12 09:22 | Observation (INO) | payer MEDICARE, MEDICAID, SELFPAY ==
[2019-11-12] VITALS (10 sets, daily range): BP systolic 140–182; BP diastolic 55–83; PULSE 42–56; RESP 18–22; TEMP 36.5–37; O2SAT 96–100; BMI 17.7; BMI 18.1
--- NOTE | 2019-11-12 09:32 | CT_ITS ---
Procedure: CT ABDOMEN PELVIS W CON Patient Age:59Y CLINICAL INDICATION: abdominal pain, nonlocalized Pain since this morning. History of pancreatitis. COMPARISON: ABDPELW/O CT ABD PELVIS W/O CONTRAST from 09/22/2016 CT ABDOMEN PELVIS W CON from 08/04/2019 TECHNIQUE: 75 cc optiray 350 IV contrast utilized but. No oral contrast Helical axial images obtained with sagittal and coronal reformats. All CT scans at the facility use one or more dose reduction, viz: automated exposure control, ma/kV adjustment per patient size (including targeted exams where dose is matched to indication, i.e. head), or iterative reconstruction technique. FINDINGS: Lower thorax: No acute finding underlying emphysematous changes but 2 heart normal size ABDOMEN: Thin patient with I suspect progressive weight loss since July 2019 with this there is paucity of abdominal fat which makes delineation show structures more difficult Liver: No masses. Intrahepatic biliary ductal dilatation again seen similar to previous study Gallbladder: Prior cholecystectomy. Moderate intra and extrahepatic biliary ductal dilatation. As reported on previous July 2019 CT again note curious ovoid density which certainly appears stable position of I believe the common duct. This best seen on on coronal image 22 (measuring 12 mm diameter 14 mm length) as well as noted on axial image 24-26 here within the dilated common duct Pancreas: Calcifications again seen throughout the pancreas compatible with chronic pancreatitis but the largest most prominent calcifications at head. Pancreatic duct more evident at head, upper normal but no change here since previous studies.. Pancreatic stent again noted in place and appears to be appropriate position transversing the ampulla Spleen: unremarkable. Normal size granulomatous calcifications but Adrenals: unremarkable tract ------ kidneys/ureters: Unremarkable. Normal enhancement no calculi nor obstruction. Ureters unremarkable the tiny 1 cm cyst posterior aspect lower pole right kidney-stable; as is a cyst less than 17 mm cyst off the lower pole left kidney PELVIS: No free fluid at pelvis. Prostate unremarkable Bladder: Nondistended. No obvious stones or masses. Appendix: Unremarkable. No distention or periappendiceal phlegmonous change. GI tract Stomach: Moderate fluid at fundus of the stomach. Duodenal loop unremarkable Jejunum/ileum. Slight increased fluid at with generous gas at small bowel.. There are some of moderate air-fluid levels but no significant appearing bowel dilatation. No wall thickening.. Appendix, difficult to visualize but I see no evidence of appendicitis Large bowel: Minimal solid stool, most evident right colon and cecum. Peritoneum: No abnormal fluid collections. No obvious inflammatory changes. No free air. Lymph nodes: No enlarged lymph nodes apparent. Vasculature: 3.3 cm infrarenal abdominal aortic aneurysm again noted similar size. With circumferential atheromatous plaque. No retroperitoneal hemorrhage evident. Bones: No acute fracture IMPRESSION: No new or discrete acute findings abdomen or pelvis. Appendix is difficult to visualize but I see no evidence of appendicitis. No focal acute inflammatory changes. Slight increased gas and fluid small bowel with scattered moderate air-fluid levels. Nonspecific could reflect a mild ileus, less likely partial obstruction.-Similar but less pronounced appearance today versus July 2019 Previous cholecystectomy with moderate intrahepatic and extrahepatic biliary ductal dilatation again noted. Again note ovoid soft tissue density at the common duct again noted as described on July 2019 CT.. S
--- NOTE | 2019-11-12 09:39 | HMH.EDGENADL ---
ED Disposition Clinical Impression: Chronic calcific pancreatitis Disposition: Admitted as Observation Condition on Discharge: Fair Time of Disposition: 12:13 - Critical Care Critical Care Time: No Attestation: On 11/12/19, the high probability of a clinically significant, sudden or life threatening deterioration of the following system(s) required my full and direct attention, intervention and personal management. The time I documented below is in addition to time spent performing reported procedures but includes the following listed in this critical care notation. Medical Decision Making - Medical Records Medical records reviewed: Yes: I reviewed the patient's medical records. - Shawn Inquiry Pt receiving controlled substance: Yes Shawn was queried for this patient: Yes Reference #:: [id number] Risks and benefits of using a controlled substance: were discussed with pt by me Vital Signs: 11/12/19 09:23 11/12/19 10:01 11/12/19 10:48 Temperature 98.6 F Temperature Source Oral Pulse Rate [Right Radial] 56 L 50 L 50 L Respiratory Rate 22 20 Blood Pressure [Right Arm] 179/60 H 148/57 H 157/61 H Blood Pressure Mean [Right Arm] 99 87 93 Blood Pressure Source [Right Arm] Automatic Cuff Automatic Cuff Automatic Cuff Blood Pressure Position [Right Arm] Sitting Sitting 02 Sat by Pulse Oximetry 100 97 100 Oxygen Delivery Method Room Air Room Air Room Air 11/12/19 11:08 11/12/19 11:24 Temperature Temperature Source Pulse Rate [Right Radial] 46 L 48 L Respiratory Rate 20 Blood Pressure [Right Arm] 154/79 H 140/55 L Blood Pressure Mean [Right Arm] 104 83 Blood Pressure Source [Right Arm] Automatic Cuff Automatic Cuff Blood Pressure Position [Right Arm] Sitting Sitting 02 Sat by Pulse Oximetry 96 100 Oxygen Delivery Method Room Air Room Air - Lab Data Lab Results 11/12/19 09:33: WBC 11.2 H, RBC 5.16, Hgb 16.6, Hct 47.2, MCV 91.6, MCH 32.2 H, MCHC 35.2, RDW 14.0, Plt Count 301, MPV 7.9, Neut % (Auto) 76.9, Lymph % (Auto) 17.7, [place] % (Auto) 3.8, Eos % (Auto) 1.0, Baso % (Auto) 0.7, Neut # (Auto) 8.6 H, Lymph # (Auto) 2.0, [place] # (Auto) 0.4, Eos # (Auto) 0.1, Baso # (Auto) 0.1 11/12/19 09:33: Sodium 138, Potassium 4.6, Chloride 98, Carbon Dioxide 27, Anion Gap 17.6 H, BUN 19, Creatinine 1.00, Estimated Creat Clear 56, Estimated GFR 76, Est GFR ( Amer) 93, Glucose 155 H, Calcium 10.3 H, Total Bilirubin 0.8, AST 43, ALT 47, Alkaline Phosphatase 180 H, Total Protein 8.8 H, Albumin 4.8, Globulin 4.0 H, Albumin/Globulin Ratio 1.2, Lipase 46 Result diagrams: 11/12/19 09:33 11/12/19 09:33 Orders (Tests/Meds): ED MEDICATIONS Generic Name Dose Route Start Last Admin Trade Name Colten PRN Reason Stop Dose Admin Sodium Chloride 1,000 mls @ 999 mls/hr 11/12/19 09:45 11/12/19 09:39 Sod Chlor 0.9% 1000ml Bag IV 11/12/19 10:45 999 mls/hr .Q1H1M LOYD Administration Lisinopril 20 mg 11/13/19 09:00 Zestril 20mg Tab PO 12/13/19 08:59 DAILY LOYD Discontinued Medications Generic Name Dose Route Start Last Admin Trade Name Colten PRN Reason Stop Dose Admin Ioversol 75 ml 11/12/19 10:32 11/12/19 10:33 Rad-Optiray 350 100ml Vial IV 11/12/19 10:33 75 ml ONCE ONE Administration Protocol Ketorolac Tromethamine 15 mg 11/12/19 09:35 11/12/19 09:39 Toradol 30mg/Ml Vial IV 11/12/19 09:36 15 mg ONCE ONE Administration Morphine Sulfate 4 mg 11/12/19 10:02 11/12/19 10:05 Morphine 4mg/Ml Syringe IV 11/12/19 10:03 4 mg ONCE ONE Administration Morphine Sulfate 4 mg 11/12/19 12:05 11/12/19 12:32 Morphine 2mg/Ml Syringe IV 11/12/19 12:06 4 mg ONCE ONE Administration Ondansetron HCl 4 mg 11/12/19 09:34 11/12/19 09:40 Zofran 4mg/2ml Vial IV 11/12/19 09:35 4 mg ONCE ONE Administration Ondansetron HCl 4 mg 11/12/19 11:01 11/12/19 11:03 Zofran 4mg/2ml Vial IV 11/12/19 11:02 4 mg ONCE ONE Administration Sodium Chloride 10 ml 0
[2019-11-12 09:44] LABS: Basophils # 0.1 K/mm3 (0-0.2); Basophils % 0.7 % (0.1-2.0); Eosinophils # 0.1 K/mm3 (0.0-0.4); Hematocrit 47.2 % (42.0-52.0); Hemoglobin 16.6 g/dL (14.1-18.0); Lymphocytes % 17.7 % (10-50); Mean Corpuscular HGB Conc 35.2 g/dL (31.8-35.4); Mean Corpuscular Hemoglobin 32.2 pg (27.0-31.2); Mean Corpuscular Volume 91.6 fl (80-94); Mean Platelet Volume 7.9 fl (7.4-10.4); Monocytes # 0.4 K/mm3 (0.1-1.0); Monocytes % 3.8 % (1.7-9.3); Neutrophils # 8.6 K/mm3 (1.8-7.8); Neutrophils % 76.9 % (37.0-80.0); Platelet Count 301 K/mm3 (142-424); Red Blood Count 5.16 M/mm3 (4.60-6.20); White Blood Count 11.2 K/mm3 (4.8-10.8)
[2019-11-12 09:52] LABS: Chloride 98 mmol/L (98-107); Potassium 4.6 mmoL/L (3.5-5.1); Sodium 138 mmol/L (136-145)
[2019-11-12 09:55] LABS: Alanine Aminotransferase 47 U/L (12-78); Albumin Level 4.8 g/dl (3.5-5.0); Albumin/Globulin Ratio 1.2 (1.1-1.8); Alkaline Phosphatase 180 U/L (38-126); Anion Gap 17.6 mEq/L (5-15); Aspartate Amino Transferase 43 U/L (17-59); Bilirubin,Total 0.8 mg/dl (0.2-1.3); Blood Urea Nitrogen 19 mg/dl (9-20); Calcium 10.3 mg/dl (8.4-10.2); Carbon Dioxide 27 mmol/L (22.0-30.0); Creatinine Clearance Estimated 56 mL/min (50-200); Estimated Glomerular Filt Rate 76 ml/min (>60); GFR (African American) 93 ML/MIN (>60); Glucose 155 mg/dl (74-100); Lipase 46 U/L (23-300); Total Protein,Serum 8.8 g/dl (6.3-8.2)
--- NOTE | 2019-11-12 10:18 | PC.NURSE ---
Pt to rad.
--- NOTE | 2019-11-12 10:19 | PC.NURSE ---
pt to ct
--- NOTE | 2019-11-12 10:40 | PC.NURSE ---
pt return from CT
--- NOTE | 2019-11-12 10:48 | PC.NURSE ---
Pt states he is still having pain. aware.
--- NOTE | 2019-11-12 12:08 | PC.NURSE ---
hot stamp operator paging dr. veloz
--- NOTE | 2019-11-12 12:11 | PC.NURSE ---
LANA PABLO speaking with dr. veloz
--- NOTE | 2019-11-12 12:35 | PC.NURSE ---
pt refused to get in a pt gown at this time
--- NOTE | 2019-11-12 12:41 | PC.NURSE ---
report called to milly todd on second floor, states she will send staff down to transport pt.
--- NOTE | 2019-11-12 12:50 | PC.NURSE ---
Pt arrived to floor at this time.
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
--- NOTE | 2019-11-12 15:37 | PC.NURSE ---
SHORTLY AFTER ARRIVING TO FLOOR FROM THE ER, PT STATED HE WANTED TO GO FOR A WALK. EDUCATION PROVIDED DURING ADMISSION AND AT THIS TIME REGARDING PROCEDURE TO LEAVE FLOOR AND ENCOURAGEMENT TO WALK ONLY AROUND 2ND FLOOR UNIT AREA UNLESS PHYSICIAN IS CONTACTED AND APPROPRIATE FORMS ARE SIGNED. PT AGREED TO WALK IN DESIGNATED AREAS. PT WAS FOUND OFF SECOND FLOOR UNIT AND WALKING ONTO ELEVATOR BY THIS HOCKEY PLAYER AND OTHER STAFF. PT STATED HE WANTED TO SMOKE, EDUCATION PROVIDED AGAIN THAT OUR FACILITY IS NON-SMOKING. PT COOPERATIVELY WALKED BACK TO FLOOR, DR. BLAIR NOTIFIED DURING ROUNDS AND HE PROVIDED EDUCATION TO PT AND DID NOT GIVE HIS APPROVAL FOR PT TO LEAVE FLOOR TO SMOKE. NICOTINE PATCH DECLINED BY PT. DR. BLAIR ALSO NOTIFIED OF PT'S PAIN LEVEL AND HR OF 42, NO NEW ORDERS RECEIVED. PT CONTINUES TO HAVE ABDOMINAL PAIN. SAFETY MEASURES IN PLACE. TEDS REFUSED. IV IS SECURE, PATENT,AND SL. VSS. NO DISTRESS NOTED. WILL CONTINUE TO MONITOR
--- NOTE | 2019-11-12 20:05 | PC.NURSE ---
Pt was observed leaving floor per staff. This nurse was notified and found pt in elevator. Pt was educated on importance of staying on floor and safety. Pt stated he needed to smoke and then started to have pain and then got lost. This nurse educated pt on smoking policy and instructed pt not to leave floor. Pt cooperatively walked back to floor , then room without any difficulty. Appropriate documents were signed per pt and is on chart. was notified per Promise Cintron RN. Nicotine patch ordered and applied.
[2019-11-13 04:00] VITALS: BP 101/51; PULSE 51; RESP 18; TEMP 37; O2SAT 97; BMI 19.1
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
--- NOTE | 2019-11-13 06:25 | PC.NURSE ---
Pt c/o increased abdominal discomfort this morning. Pt states it feels like it did on wednesday when he was at home. Medicated per jun. Will continue to monitor.
--- NOTE | 2019-11-13 07:14 | P.CONPHA_ITS ---
[facility] Pharmacy VTE Monitoring - Patient Demographics Admission date: 11/12/19 Report Date: 11/13/19 Time: 07:14 Allergies/Adverse Reactions: Patient Allergies No Known Allergies Allergy (Verified 09/15/19 15:55) Height: 1.68 m Weight: 53.779 kg Patient Problems: Current Active Problems Chronic calcific pancreatitis (Acute) - VTE Risk Labs: VTE Related Lab Results Hgb 16.6 g/dL (14.1-18.0) 11/12/19 09:33 Hct 47.2 % (42.0-52.0) 11/12/19 09:33 Plt Count 301 K/mm3 (142-424) 11/12/19 09:33 BUN 19 mg/dl (9-20) 11/12/19 09:33 Creatinine 1.00 mg/dl (0.66-1.25) 11/12/19 09:33 Estimated Creat Clear 56 mL/min (50-200) 11/12/19 09:33 Was VTE Risk Assessment Performed: Yes VTE Score: 3 VTE Risk Level: Low Risk - Prophylaxis VTE Prophylaxis Ordered?: Yes Types of VTE Prophylaxis: TEDS Knee High Location of Applied Device: Bilateral Lower Extremeties - VTE Diagnosis Confirmed Treatment or plan recommended: Continue Current Treatment
--- NOTE | 2019-11-13 07:44 | HMH.PHAINT ---
MEDICATION RECONCILIATION COMPLETED ON PATIENT USING EXTERNAL FILL HISTORY AND LIST FROM DR. NICOLE'S OFFICE. SUBOXONE DOSE VERIFIED WITH PHARMACY AND VIA JARRET. -FERDINAND SANTANAD
[2019-11-13 07:48] VITALS: BP 129/71; PULSE 51; RESP 24; TEMP 36.5; O2SAT 100
[2019-11-13 07:53] LABS: Basophils # 0.1 K/mm3 (0-0.2); Basophils % 0.8 % (0.1-2.0); Eosinophils # 0.1 K/mm3 (0.0-0.4); Eosinophils % 1.3 % (0.1-12.0); Lymphocytes # 2.3 K/mm3 (0.7-4.5); Mean Corpuscular Hemoglobin 31.8 pg (27.0-31.2); Mean Platelet Volume 7.7 fl (7.4-10.4)
[2019-11-13 07:58] LABS: Hematocrit 42.1 % (42.0-52.0); Lymphocytes % 21.3 % (10-50); Mean Corpuscular HGB Conc 35.1 g/dL (31.8-35.4); Mean Corpuscular Volume 90.4 fl (80-94); Monocytes # 0.5 K/mm3 (0.1-1.0); Monocytes % 4.8 % (1.7-9.3); Neutrophils # 7.6 K/mm3 (1.8-7.8); Neutrophils % 71.8 % (37.0-80.0); Platelet Count 239 K/mm3 (142-424); Red Blood Count 4.66 M/mm3 (4.60-6.20); Red Cell Distribution Width 13.8 % (11.5-17.5); White Blood Count 10.6 K/mm3 (4.8-10.8)
[2019-11-13 08:02] LABS: Hemoglobin 14.8 g/dL (14.1-18.0)
[2019-11-13 08:08] LABS: Chloride 99 mmol/L (98-107); Potassium 4.4 mmoL/L (3.5-5.1); Sodium 135 mmol/L (136-145)
[2019-11-13 08:10] LABS: Blood Urea Nitrogen 15 mg/dl (9-20); Creatinine Clearance Estimated 61 mL/min (50-200); Estimated Glomerular Filt Rate 76 ml/min (>60); GFR (African American) 93 ML/MIN (>60)
[2019-11-13 08:11] LABS: Alanine Aminotransferase 40 U/L (12-78); Albumin/Globulin Ratio 1.3 (1.1-1.8); Alkaline Phosphatase 133 U/L (38-126); Anion Gap 12.4 mEq/L (5-15); Aspartate Amino Transferase 37 U/L (17-59); Bilirubin,Total 0.7 mg/dl (0.2-1.3); Calcium 9.3 mg/dl (8.4-10.2); Carbon Dioxide 28 mmol/L (22.0-30.0); Globulin 3.1 g/dL (1.3-3.2); Glucose 134 mg/dl (74-100); Total Protein,Serum 7.1 g/dl (6.3-8.2)
[2019-11-13 08:45] LABS: Amylase 52 U/L (30-110); Lipase 36 U/L (23-300)
--- NOTE | 2019-11-13 09:10 | HMH.ACPN2 ---
Internal Medicine - PN: Subj *Date: 11/13/19 *Time: 09:10 Interval history: today pt is c/o of pain in abd. Pt states pain is all over abd. no n/v/d Exam Vital signs and Labs for Last 24 Hours: Temp Pulse Resp BP Pulse Ox 97.7 F 51 L 24 129/71 100 11/13/19 07:48 11/13/19 07:48 11/13/19 07:48 11/13/19 07:48 11/13/19 07:48 Laboratory Results - last 24 hr 11/12/19 09:33: WBC 11.2 H, RBC 5.16, Hgb 16.6, Hct 47.2, MCV 91.6, MCH 32.2 H, MCHC 35.2, RDW 14.0, Plt Count 301, MPV 7.9, Neut % (Auto) 76.9, Lymph % (Auto) 17.7, [place] % (Auto) 3.8, Eos % (Auto) 1.0, Baso % (Auto) 0.7, Neut # (Auto) 8.6 H, Lymph # (Auto) 2.0, [place] # (Auto) 0.4, Eos # (Auto) 0.1, Baso # (Auto) 0.1 11/12/19 09:33: Sodium 138, Potassium 4.6, Chloride 98, Carbon Dioxide 27, Anion Gap 17.6 H, BUN 19, Creatinine 1.00, Estimated Creat Clear 56, Estimated GFR 76, Est GFR ( Amer) 93, Glucose 155 H, Calcium 10.3 H, Total Bilirubin 0.8, AST 43, ALT 47, Alkaline Phosphatase 180 H, Total Protein 8.8 H, Albumin 4.8, Globulin 4.0 H, Albumin/Globulin Ratio 1.2, Lipase 46 11/13/19 07:50: WBC 10.6, RBC 4.66, Hgb 14.8 D, Hct 42.1, MCV 90.4, MCH 31.8 H, MCHC 35.1, RDW 13.8, Plt Count 239, MPV 7.7, Neut % (Auto) 71.8, Lymph % (Auto) 21.3, [place] % (Auto) 4.8, Eos % (Auto) 1.3, Baso % (Auto) 0.8, Neut # (Auto) 7.6, Lymph # (Auto) 2.3, [place] # (Auto) 0.5, Eos # (Auto) 0.1, Baso # (Auto) 0.1 11/13/19 07:50: Sodium 135 L, Potassium 4.4, Chloride 99, Carbon Dioxide 28, Anion Gap 12.4, BUN 15, Creatinine 1.00, Estimated Creat Clear 61, Estimated GFR 76, Est GFR ( Amer) 93, Glucose 134 H, Calcium 9.3, Total Bilirubin 0.7, AST 37, ALT 40, Alkaline Phosphatase 133 H, Total Protein 7.1, Albumin 4.0 D, Globulin 3.1, Albumin/Globulin Ratio 1.3 11/13/19 07:52: Amylase 52 11/13/19 07:52: Lipase 36 I & O for Last 24 hours: Intake & Output 11/10/19 11/11/19 11/12/19 11/13/19 11:59 11:59 11:59 11:59 Intake Total 2119 Balance 2119 Weight 110 lb 118 lb 9 oz - Constitutional no acute distress, thin - *Routine HEENT Exam Head: Present: normocephalic Eye: Present: PERRL ENT: Present: mucous membranes moist - *Routine Neck Exam Present: supple. Absent: lymphadenopathy - *Routine Respiratory Exam Present: CTA bilaterally - *Routine Cardiovascular Exam Present: RRR - *Routine Abdominal Exam Present: soft, normoactive bowel sounds, tenderness. Absent: distended, guarding - *Routine Extremities Exam Present: normal capillary refill. Absent: cyanosis, clubbing, edema - *Routine Skin Exam Present: warm. Absent: rash - *Routine Neurological Exam Present: alert, oriented X3 - Routine Psychiatric Exam Present: normal affect Assessment and Plan (1) Chronic calcific pancreatitis Current visit: Yes Status: Acute Category: Medical Code(s): K86.1 - Other chronic pancreatitis (2) Pancreatitis Current visit: No Status: Acute Qualifiers: Chronicity: chronic Pancreatitis type: unspecified pancreatitis type Qualified Code(s): K86.1 - Other chronic pancreatitis Category: Medical Code(s): K85.90 - Acute pancreatitis without necrosis or infection, unspecified (3) Tobacco dependence Current visit: No Status: Acute Category: Medical Code(s): F17.200 - Nicotine dependence, unspecified, uncomplicated (4) Hypertension Current visit: No Status: Chronic Qualifiers: Hypertension type: essential hypertension Qualified Code(s): I10 - Essential (primary) hypertension Category: Medical Code(s): I10 - Essential (primary) hypertension - Assessment and plan all Dx Assessment and Plan for all problems:: rounded with dr veloz and all order per dr roselia valenzuela to see pt add tordol and his home subutex
--- NOTE | 2019-11-13 09:48 | PC.NURSE ---
received call from Pam in preop. Pt will have ERCP this afternon. Per Antoni Gu, HOLD Suboxone dose. Ok to give Toradol and Lisinopril now per Antoni Gu. Received call from Kyle with Dr. Garg. Kyle to enter NPO order now.
--- NOTE | 2019-11-13 10:17 | PC.NURSE ---
Pt refuses all care and signed himself out AMA. The following were notified: Chari Holman, Nichol Friend, zeus (Becca), Dr. Britany Cole and employment security officer (Vanessa). IV discontinued. AMA paper signed. Also received call from lab (Parvin Cintron) that pt's IgG is positive x 1 wk and that IgM is negative. Nichol Friend made aware.
[2019-11-13 10:19] LABS: Coronavirus 19 IgG Antibody Positive (Negative); Coronavirus 19 IgM Antibody Negative (Negative)
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
== END 2019-11-13 10:26 | disposition left against medical advice (07) ==
LOC: ER 10:06 → 2ND 12:15
PROVIDERS: Internal Medicine Gastroenterology; Nurse Practitioner Family; Admitting Provider Family Medicine; Emergency Provider Emergency Medicine; PCP Emergency Medicine; Visit Provider Emergency Medicine
DX: K85.90 Acute pancreatitis without necrosis or infection, unspecified (principal); Z86.19 Personal history of other infectious and parasitic diseases; Z72.0 Tobacco use; I25.10 Atherosclerotic heart disease of native coronary artery without angina pectoris; I10 Essential (primary) hypertension; J44.9 Chronic obstructive pulmonary disease, unspecified; I25.2 Old myocardial infarction; Z95.5 Presence of coronary angioplasty implant and graft; K86.1 Other chronic pancreatitis; F19.11 Other psychoactive substance abuse, in remission; Z79.899 Other long term (current) drug therapy
CPT/HCPCS: 36415; 74177; 80053; 82150; 83690; 85025; 86328; 96365; 96375; 96376; 99284; G0378; J2405; Q9967

== ENCOUNTER → 2021-12-11 15:53 | Outpatient (CLI) | payer MEDICARE, MEDICAID, SELFPAY ==
--- NOTE | 2021-12-11 16:03 | MR_ITS ---
PROCEDURE INFORMATION: Exam: MR Cervical Spine Without Contrast Exam date and time: 12/11/2021 4:05 PM Age: 61 years old Clinical indication: Neck pain; Prior surgery; Surgery date: 6+ months; Additional info: History neck surgery 2011. Headache. Neck pain with bilateral arm pain, numbness, and tingling worse on right side. TECHNIQUE: Imaging protocol: Magnetic resonance imaging of the cervical spine without contrast. COMPARISON: FINDINGS: Bones/joints: The patient is status post C5-7 fusion with anterior plate and screw fixation. Posterior pedicle screw and filomena fixation is also present at C4-7. No acute fracture is identified. Alignment is anatomic. A tiny chronic superior endplate compression fracture is noted at T3. Spinal cord: The cervical cord is of normal signal intensity and size. C2-C3: Mild facet arthropathy is present. There is no spinal canal or neural foraminal stenosis. C3-C4: There is minimal shallow central disc bulging, mild uncinate spurring, thickening of the ligamentum flavum, moderate left facet arthropathy, and mild right facet arthropathy. This is causing mild spinal canal stenosis and moderate left foraminal stenosis. There is no significant right foraminal stenosis. C4-C5: There is a tiny shallow central disc osteophyte complex. There is no significant spinal canal or neural foraminal stenosis. C5-C6: Anterior and posterior fusion is present. There is no significant spinal canal or neural foraminal stenosis. C6-C7: Anterior and posterior fusion is present. Left paracentral osteophytic ridging, uncinate spurring, and mild facet arthropathy is present. This is causing minimal spinal canal stenosis and mild bilateral foraminal stenosis. C7-T1: There is mild uncinate spurring and severe facet arthropathy. This is causing mild left and minimal right foraminal stenosis. There is no spinal canal stenosis. Soft tissues: The prevertebral soft tissues are within normal limits. IMPRESSION: Postoperative and degenerative changes of the cervical spine as discussed above
== END ==
PROVIDERS: PCP Emergency Medicine; Visit Provider Orthopaedic Surgery
DX: M54.2 Cervicalgia (principal)
CPT/HCPCS: 72141; 76376

== ENCOUNTER 2022-10-27 13:31 | Emergency (ER) | payer MEDICARE, MEDICAID, SELFPAY ==
[2022-10-27 13:40] VITALS: BP 130/82; PULSE 84; RESP 18; TEMP 36.6; O2SAT 98
--- NOTE | 2022-10-27 13:46 | XR_ITS ---
FINAL REPORT CLINICAL HISTORY: DROVE NAIL INTO HAND FINDINGS: 3 views of the left hand were obtained. There is no acute fracture or dislocation. There is degenerative joint disease. There is no radiopaque foreign body IMPRESSION: No acute osseous abnormality or radiopaque foreign body. Reviewed, Interpreted and Dictated by Mandy Delgado MD Transcribed by Alex Farr Authenticated and [facility]
--- NOTE | 2022-10-27 13:48 | EXP.UTC ---
Discharge Plan Disposition Patient Disposition: Home, Self-Care Condition: Good Prescriptions Prescriptions: New amoxicillin-pot clavulanate 875-125 mg Tablet 1 tab PO Q12H Qty: 20 0RF No Action lisinopril 20 mg tablet 20 mg PO DAILY buprenorphine-naloxone 8-2 mg tablet, sublingual 2 tab SL DAILY Patient Comments: DISSOLVE 2 TABLETS SUBLINGUALLY EVERY DAY gabapentin 100 MG capsule 100 mg PO TID Referrals Follow up/Referrals: Oliva Varner [Primary Care Provider] - See instructions Activity Restrictions/Add. Instructions Additional Instructions/Restrictions: Clean wound several times daily with antibacterial soap and water Take medication as prescribed Follow up immediately If any worsening of redness swelling or signs of infection Return if needed Straight to ER if Clinical Impressions Clinical Impression: Puncture wound Instructions Patient Instructions: DI for Puncture Wound, Amoxicillin Discharge ED Provider: Debbie Hooks [facility] General Stated complaint: AO 10/26 LT hand pain Mode of Arrival: Ambulatory Source of Information: Patient Limitations: No Limitations Time Seen by Provider: 10/27/22 13:49 Description of Symptoms (Recalled from Triage Doc. by RN): PATIENT REPORTS DRIVING A NAIL INTO HIS LEFT HAND YESTERDAY HEENT Symptoms (Recalled from RN notes): No Resp Symptoms (Recalled from RN notes): No Skin Symptoms (Recalled from RN notes): Yes MS Symptoms (Recalled from RN notes): No Functional Status (Recalled from RN notes): WNL History of Present Illness Provider Complaint: Patient states that he was helping family tear down a barn yesterday when he thinks he drove a nail into his left hand beside his thumb States that since then he has had some swelling and today it looks a little red so he came in to get it checked Related Data Home Medications Medication Instructions Recorded Confirmed lisinopril 20 mg tablet 20 mg PO DAILY Hypertension 07/20/18 11/12/19 buprenorphine 8 mg-naloxone 2 mg 2 tab SL DAILY WITHDRAWAL 08/02/19 11/13/19 sublingual tablet gabapentin 100 mg capsule 100 mg PO TID Pain 11/13/19 11/13/19 Previous Rx's Medication Instructions Recorded amoxicillin 875 mg-potassium 1 tab PO Q12H #20 tabs 10/27/22 clavulanate 125 mg tablet Allergies Allergy/AdvReac Type Severity Reaction Status Date / Time No Known Allergies Allergy Verified 09/15/19 15:55 Worker's Comp Is this a Worker's Comp case?: No [facility] Disclaimer: The information contained in this section may have been updated after the patient was seen, as this information can be updated by other users. Medical History (Updated 10/27/22 @ 14:51 by Debbie Hooks APRN) Degenerative joint disease of cervical and lumbar spine Hypertension Social History Smoking Status: Current every day smoker tobacco type: cigarettes packs per day: 1 second hand exposure: Yes alcohol intake: never substance use type: former substance user current occupational status: disabled Travel in the last 8 weeks: None household members: other housing: apartment current occupational exposures/hazards: No caffeine: Yes ROS Obtained: Yes All systems reviewed & no additional complaints except as documented and Yes Systems reviewed as appropriate & no additional complaints except as documented Constitutional Constitutional: Reports system reviewed and no additional complaints, except as documented, Reports as per HPI, Denies body ache, Denies chills and Denies fever(s) ENT Ears, Nose, Mouth, and Throat: Reports system reviewed and no additional complaints, except as documented and Reports as per HPI Cardiovascular Cardiovascular: Reports system reviewed and no additional complaints, except as documented and Reports as per HPI Respiratory Respiratory: Reports system reviewed and no additional complaints, except as documented and Reports as per HPI Gastrointestinal
[2022-10-27 14:30] VITALS: BP 130/82; PULSE 84; RESP 18; TEMP 36.6; O2SAT 98
== END 2022-10-27 15:48 | disposition home or self-care (01) ==
PROVIDERS: Emergency Provider Nurse Practitioner; PCP Emergency Medicine
DX: S61.432A Puncture wound without foreign body of left hand, initial encounter (principal); F17.210 Nicotine dependence, cigarettes, uncomplicated; I10 Essential (primary) hypertension; M50.30 Other cervical disc degeneration, unspecified cervical region; M51.36 Other intervertebral disc degeneration, lumbar region; W45.0XXA Nail entering through skin, initial encounter; Z23 Encounter for immunization
CPT/HCPCS: 73130; 90471; 90715; 96372; 99204; 99212; G0463

== ENCOUNTER 2023-11-22 14:52 | Outpatient (CLI) | payer MEDICARE, MEDICAID, SELFPAY ==
[2023-11-22 15:27] LABS: Basophils # 0.1 K/mm3 (0-0.2); Basophils % 1.3 % (0.1-2.0); Eosinophils # 0.4 K/mm3 (0.0-0.4); Eosinophils % 3.6 % (0.1-12.0); Hematocrit 43.6 % (42.0-52.0); Hemoglobin 13.5 g/dL (14.1-18.0); Lymphocytes # 3.2 K/mm3 (0.7-4.5); Lymphocytes % 32.1 % (10-50); Mean Corpuscular HGB Conc 31.1 g/dL (31.8-35.4); Mean Corpuscular Hemoglobin 30.4 pg (27.0-31.2); Mean Corpuscular Volume 97.8 fl (80-94); Mean Platelet Volume 7.8 fl (7.4-10.4); Monocytes # 0.5 K/mm3 (0.1-1.0); Monocytes % 5.2 % (1.7-9.3); Neutrophils # 5.7 K/mm3 (1.8-7.8); Neutrophils % 57.9 % (37.0-80.0); Platelet Count 264 K/mm3 (142-424); Red Blood Count 4.46 M/mm3 (4.60-6.20); Red Cell Distribution Width 14.7 % (11.5-17.5); White Blood Count 9.8 K/mm3 (4.8-10.8)
[2023-11-22 15:33] LABS: Alanine Aminotransferase 33 U/L (12-78); Albumin Level 3.8 g/dl (3.5-5.0); Alkaline Phosphatase 125 U/L (38-126); Anion Gap 8.9 mEq/L (5-15); Aspartate Amino Transferase 30 U/L (17-59); Bilirubin,Indirect 0.4 mg/dL (0.0-0.9); Bilirubin,Total 0.4 mg/dl (0.2-1.3); Bilirubin,Unconjugated 0.4 mg/dL (0.0-1.1); Blood Urea Nitrogen 12 mg/dl (9-20); Calcium 9.2 mg/dl (8.4-10.2); Carbon Dioxide 25 mmol/L (22.0-30.0); Chloride 107 mmol/L (98-107); Chol/HDL Ratio 3.4 (1-3.5); Cholesterol 151 mg/dl (140-200); Estimated Glomerular Filt Rate 68 ml/min (>60); GFR (African American) 82 ML/MIN (>60); Glucose 147 mg/dl (74-100); HDL Cholesterol 44 mg/dl (40-60); Potassium 3.9 mmoL/L (3.5-5.1); Sodium 137 mmol/L (136-145); Total Protein,Serum 7.4 g/dl (6.3-8.2); Triglycerides 172 mg/dl (30-150); VLDL Cholesterol 34 mg/dL (0-40)
[2023-11-22 15:44] LABS: Direct LDL Cholesterol 64.79 mg/dL (100-129)
[2023-11-22 15:52] LABS: Free T4 (Free Thyroxine) 1.09 ng/dl (0.78-2.19)
[2023-11-22 16:01] LABS: Troponin I < 0.01 ng/ml (0.00-0.034)
[2023-11-22 16:03] LABS: Thyroid Stimulating Hormone 0.64 uIU/mL (0.465-4.68)
== END 2023-11-22 23:59 | disposition home or self-care (01) ==
LOC: LAB 14:54
PROVIDERS: PCP Emergency Medicine; Visit Provider Nurse Practitioner Family
DX: I10 Essential (primary) hypertension (principal); R06.00 Dyspnea, unspecified; R94.31 Abnormal electrocardiogram [ECG] [EKG]; F17.200 Nicotine dependence, unspecified, uncomplicated; J44.1 Chronic obstructive pulmonary disease with (acute) exacerbation; I25.119 Atherosclerotic heart disease of native coronary artery with unspecified angina pectoris; R07.89 Other chest pain; J44.9 Chronic obstructive pulmonary disease, unspecified
CPT/HCPCS: 36415; 80048; 80061; 80076; 84439; 84443; 84484; 85025

== ENCOUNTER 2023-12-27 07:57 | Day surgery (SDC) | payer MEDICARE, MEDICAID, SELFPAY ==
[2023-12-27] VITALS (16 sets, daily range): BP systolic 139–188; BP diastolic 77–98; PULSE 58–74; RESP 16–20; TEMP 36.6; O2SAT 100; BMI 18.6
--- NOTE | 2023-12-27 07:09 | IR_ITS ---
APPROVED REPORT Patient Location: Outpatient [facility] Operator: TOM Torres RT (R) PROCEDURES Left heart catheterization Left ventriculogram Selective coronary angiogram INDICATION Abnormal Myoview, Known coronary artery disease, Angina pectoris Informed consent was obtained prior to the procedure. COMPLICATIONS NONE Estimated Blood Loss: LESS THAN 10 ML TECHNIQUE One percent lidocaine was used to anesthetize the right groin. The right femoral artery was accessed via the Seldinger technique. A 4-Indonesian sheath was placed in the right femoral artery. The JL-4 and JR-4 catheter was also used to perform left heart catheterization left ventriculogram and selective coronary angiogram. At the end of the procedure the patient was transferred to the post-op holding area in stable condition for arterial sheath removal. ANGIOGRAPHIC RESULTS The left main artery Has a long smooth 20% stenosis The left anterior descending artery Has an ostial 30% stenosis followed by diffuse 10% luminal regularities The circumflex artery Nondominant yet still large with diffuse 10% luminal irregularities The right coronary artery Dominant with stent in the proximal and mid segment which are widely patent free of in-stent restenosis with excellent proximal distal transitioning. Distally the vessel has 20 to 30% nonflow limiting stenosis The PINO ventriculogram reveals Normal 60% The left ventricular end-diastolic pressure Less than 10 mmHg IMPRESSION Coronary disease as described above Normal ejection fraction Normal LVEDP PLAN 1. Risk factor modification 2. Recommend PFTs and further evaluation of dyspnea. Consider pulmonary referral Electronically signed by : Milan Rivera MD 12/27/2023 10:26:34
[2023-12-27 08:46] LABS: Basophils # 0.1 K/mm3 (0-0.2); Basophils % 1.4 % (0.1-2.0); Eosinophils # 0.2 K/mm3 (0.0-0.4); Eosinophils % 2.4 % (0.1-12.0); Hematocrit 45.6 % (42.0-52.0); Hemoglobin 14.1 g/dL (14.1-18.0); Lymphocytes # 1.9 K/mm3 (0.7-4.5); Lymphocytes % 25.3 % (10-50); Mean Corpuscular HGB Conc 30.9 g/dL (31.8-35.4); Mean Corpuscular Hemoglobin 29.7 pg (27.0-31.2); Mean Corpuscular Volume 96.1 fl (80-94); Mean Platelet Volume 8.1 fl (7.4-10.4); Monocytes # 0.5 K/mm3 (0.1-1.0); Monocytes % 5.9 % (1.7-9.3); Neutrophils % 65.2 % (37.0-80.0); Platelet Count 249 K/mm3 (142-424); Red Blood Count 4.75 M/mm3 (4.60-6.20); White Blood Count 7.6 K/mm3 (4.8-10.8)
[2023-12-27 08:52] LABS: Chloride 111 mmol/L (98-107); Potassium 4.3 mmoL/L (3.5-5.1); Sodium 140 mmol/L (136-145)
[2023-12-27 08:55] LABS: Anion Gap 8.3 mEq/L (5-15); Blood Urea Nitrogen 18 mg/dl (9-20); Carbon Dioxide 25 mmol/L (22.0-30.0); Creatinine Clearance Estimated 46 mL/min (50-200); Estimated Glomerular Filt Rate 61 ml/min (>60); GFR (African American) 74 ML/MIN (>60)
[2023-12-27 08:56] LABS: Calcium 8.9 mg/dl (8.4-10.2); Glucose 154 mg/dl (74-100)
[2023-12-27] MEDS: HEPARIN 1,000 UNITS/ML 10ML VIAL (CATH LAB) 10000 UNIT IV (09:41)
[2023-12-27] MEDS: LIDOCAINE 1% 10ML MDV 20 ML IJ (09:41)
[2023-12-27] MEDS: diphenhydrAMINE 50MG/ML VIAL 50 MG IV (09:41)
[2023-12-27] MEDS: FENTANYL 100MCG/2ML VIAL 50 MCG IV (09:42)
[2023-12-27] MEDS: 0.9 % SODIUM CHLORIDE 500 ML 25 ML IV (09:42)
[2023-12-27] MEDS: VERAPAMIL 2.5MG/ML 2ML VIAL 2.5 MG IV (09:42)
[2023-12-27] MEDS: MIDAZOLAM HCL 1MG/1ML 5ML VIAL 1 MG IV (09:42)
[2023-12-27] MEDS: HEPARIN 1,000 UNITS/500ML NS (CATH LAB) 3000 UNIT IV (09:43)
[2023-12-27] MEDS: MORPHINE 4MG/ML SYRINGE 4 MG IV (11:50)
[2023-12-27] MEDS: IOPAMIDOL-370 (76%);100ML BOTTLE 50 ML IV (12:45)
== END 2023-12-27 13:30 | disposition home or self-care (01) ==
PROVIDERS: PCP Emergency Medicine; Visit Provider Internal Medicine
DX: R93.1 Abnormal findings on diagnostic imaging of heart and coronary circulation (principal); I34.0 Nonrheumatic mitral (valve) insufficiency; I25.118 Atherosclerotic heart disease of native coronary artery with other forms of angina pectoris; F17.210 Nicotine dependence, cigarettes, uncomplicated; Z79.4 Long term (current) use of insulin; E11.9 Type 2 diabetes mellitus without complications; Z95.5 Presence of coronary angioplasty implant and graft; I10 Essential (primary) hypertension
CPT/HCPCS: 80048; 85025; 93458; 99152; C1725; C1769; J1200; J1644; J2250; J2270; J3010; Q9967

== ENCOUNTER → 2024-01-26 07:47 | Day surgery (SDC) | payer MEDICARE, MEDICAID, SELFPAY ==
[2024-01-25 09:52] VITALS: BMI 19.3
[2024-01-26] VITALS (7 sets, daily range): BP systolic 75–146; BP diastolic 49–87; PULSE 72–83; RESP 14–18; TEMP 36.3–36.6; O2SAT 96–100; BMI 19.3
--- NOTE | 2024-01-26 08:04 | ECG_ITS ---
APPROVED REPORT Exam: Resting ECG HR:77 bpm ECG Measurements Heart Rate 77 AXES KS 146 P 66 QRSd 87 QRS 74 QT 380 T 55 QTc 412 Conclusion SINUS RHYTHM POSSIBLE LEFT ATRIAL ENLARGEMENT [-0.1mV P-WAVE IN V1/V2] TALL T-WAVES, SUGGESTS HYPERKALEMIA ABNORMAL ECG UNCONFIRMED REPORT Electronically signed by : Dave Angeles MD 01/26/2024 09:21:02
--- NOTE | 2024-01-26 08:09 | CA_ITS ---
APPROVED REPORT EXAM: Comprehensive 2D, Doppler, and color-flow Echocardiogram Travel Director: Jillian Esteban RVT Ht: 5 ft 6 in Wt: 120lbs BSA: 1.61 BP: 150/94 mmHg Indications: MR,MAC,SMOKER,MURMUR,COPD,ABN EKG Procedure After obtaining informed consent, patient underwent transesophageal echo in the [facility]. Type of Sedation : MAC Sedation start time: 10:10 Case end Time: 10:30 The ITA was performed without complications. Throughout the procedure, the blood pressure, pulse oximetry, cardiac rhythm, and rate were monitored. The patient tolerated the procedure without adverse effects. Recovery from conscious sedation was uneventful and vital signs were stable. Left Ventricle The left ventricle is normal size. The left ventricular systolic function is normal. The left ventricular ejection fraction is within the normal range. There is increased LV wall thickness. There is normal LV segmental wall motion. LVEF is 55%. Right Ventricle The right ventricle is normal size. The right ventricular systolic function is normal. Atria The left atrium size is normal. No thrombus is visualized in the left atrium or appendage. The right atrium size is normal. Interatrial septum is intact without evidence of ASD or PFO. Aortic Valve The aortic valve is mildly thickened. Mild aortic regurgitation. Mitral Valve The mitral valve leaflets are mildly thickened. There is a well-circumscribed, round, fixed hyperechoic echodensity/mass attached to the distal end of the P2 segment of the posterior leaflet. The mass measures approximately 1.2 cm in diameter. The mass is causing malcoaptation of the MV leaflets, resulting in mitral regurgitation. No evidence of mitral valve stenosis. Moderate to severe mitral regurgitation is present. There are multiple eccentric MR jets present. EROA by PISA cannot be calculated due to multiple jets and anatomic obstruction. Tricuspid Valve The tricuspid valve leaflets are thin and pliable. Trace tricuspid regurgitation. Pulmonic Valve The pulmonary valve is normal in structure. Trace pulmonic regurgitation. Great Vessels The aortic root is normal in size. The ascending aorta is normal in size. Atherosclerosis is noted in the descending thoracic aorta. Pericardium There is no pericardial effusion. Other Information Study Quality: Fair Conclusion Normal biventricular systolic function. Well-circumscribed, round, fixed hyperechoic echodensity/mass attached to the distal end of the P2 segment of the posterior leaflet. The mass measures approximately 1.2 cm in diameter. The mass is causing malcoaptation of the MV leaflets, resulting in mitral regurgitation. Moderate to severe mitral regurgitation is present. There are multiple eccentric MR jets present. EROA by PISA cannot be calculated due to multiple jets and anatomic obstruction. Mild AI. Atherosclerosis is noted in the descending thoracic aorta. The differential diagnosis of fixed, round mitral valve mass, the differential diagnosis includes fibroadenoma vs. valvular myxoma, however vegetations vs thrombus cannot be entirely excluded. In the setting of in the setting of concomitant significant mitral regurgitation, early referral for surgical evaluation is recommended. Blood cultures were also drawn post-procedurally to rule out valvular vegetations. Electronically signed by : Kelly Ugarte MD 01/27/2024 13:08:39
[2024-01-26 08:38] LABS: Basophils # 0.2 K/mm3 (0-0.2); Basophils % 1.6 % (0.1-2.0); Eosinophils # 0.3 K/mm3 (0.0-0.4); Eosinophils % 3.3 % (0.1-12.0); Hematocrit 42.6 % (42.0-52.0); Hemoglobin 14.6 g/dL (14.1-18.0); Lymphocytes # 2.6 K/mm3 (0.7-4.5); Lymphocytes % 26.2 % (10-50); Mean Corpuscular HGB Conc 34.2 g/dL (31.8-35.4); Mean Corpuscular Hemoglobin 31.3 pg (27.0-31.2); Mean Corpuscular Volume 91.4 fl (80-94); Mean Platelet Volume 7.6 fl (7.4-10.4); Monocytes # 0.6 K/mm3 (0.1-1.0); Monocytes % 6.3 % (1.7-9.3); Neutrophils # 6.2 K/mm3 (1.8-7.8); Neutrophils % 62.7 % (37.0-80.0); Platelet Count 247 K/mm3 (142-424); Red Blood Count 4.66 M/mm3 (4.60-6.20); Red Cell Distribution Width 14.4 % (11.5-17.5); White Blood Count 9.8 K/mm3 (4.8-10.8)
[2024-01-26 08:39] LABS: Chloride 105 mmol/L (98-107)
[2024-01-26 08:40] LABS: Potassium 4.2 mmoL/L (3.5-5.1); Sodium 137 mmol/L (136-145)
[2024-01-26 08:43] LABS: Anion Gap 11.2 mEq/L (5-15); Blood Urea Nitrogen 29 mg/dl (9-20); Calcium 9.5 mg/dl (8.4-10.2); Carbon Dioxide 25 mmol/L (22.0-30.0); Creatinine Clearance Estimated 39 mL/min (50-200); Estimated Glomerular Filt Rate 47 ml/min (>60); GFR (African American) 57 ML/MIN (>60); Glucose 221 mg/dl (74-100)
[2024-01-26 08:46] LABS: INR 0.93 (0.9-1.1); Prothrombin Time 10.5 seconds (10.1-12.5)
--- NOTE | 2024-01-26 09:55 | P.PNANES_ITS ---
[facility] Disclaimer: The information contained in this section may have been updated after the patient was seen, as this information can be updated by other users. Medical History Diabetes mellitus Anemia Abnormal findings diagnostic imaging of heart and coronary circulation Abnormal echocardiogram Mitral regurgitation, acute Hyperlipidemia Angina pectoris Dyspnea Tobacco dependence CAD (coronary artery disease) COPD (chronic obstructive pulmonary disease) Hypertension Degenerative joint disease of cervical and lumbar spine Surgical History H/O neck surgery Family History Other Family history of cancer Family history of myocardial infarction Social History Smoking Status: Current every day smoker tobacco type: cigarettes packs per day: 1 second hand exposure: Yes alcohol intake: never substance use type: former substance user current occupational status: retired Travel in the last 8 weeks: None household members: other housing: apartment current occupational exposures/hazards: No caffeine: Yes [facility] Anesthesia Checklist Patient Identification Patient Identification: Arm Band and Verbal (Name & ) Structural Data Admitted From: Home Planned Operative Procedure/s: ITA Consent for Planned Operative Procedure(s) Verified: Yes Verified Documents: Surgical Consent and History and Physical NPO Status Verified Time NPO: 00:00 Chart Verification Results Verified: CBC, BMP, PT, PTT, INR and ECG Additional verifications Patient : No Anesthesia Reactions: No Cardiovascular Assessment Heart Sounds: S1 & S2 Pulse Rhythm: Irregular Airway Assessment Mallampati Score:: Class II C-Spine Mobility Assessed: Yes (LIMITED s/p ACDF) TMJ Mobility Assessed: Yes Dentition: Poor Dentition (Nothing loose per pt.) Neurological Assessment Level of Consciousness: Awake, Alert, Appropriate and Follows Commands Hx Seizures: Yes Numbness or tingling in extremities: No Anesthesia Plan Anesthesia Risk discussed: Yes Anesthesia Plan: Verified ASA Class: III Anesthesia Type: MAC
--- NOTE | 2024-01-26 10:35 | SUR.PHASEII ---
lab to bedside to draw blood culture.
== END | disposition home or self-care (01) ==
PROVIDERS: Visit Provider Internal Medicine
DX: R93.1 Abnormal findings on diagnostic imaging of heart and coronary circulation (principal); I34.0 Nonrheumatic mitral (valve) insufficiency; I25.118 Atherosclerotic heart disease of native coronary artery with other forms of angina pectoris
CPT/HCPCS: 36415; 80048; 85025; 85610; 87040; 93005; 93270; 93312; 93319